=== PATIENT | female | born 1945 | race African-American/Black ===

== ENCOUNTER 2018-01-05 15:28 | Inpatient (IN) | payer MEDICARE, OTHER ==
[~2018-01-05] VITALS: Ht 157.5 cm; Wt 59.9 kg
[2018-01-05] MEDS ORDERED: Sodium Chloride 500ML 500 ML IV ONE (16:00)
[2018-01-05 16:19] LABS: BASOPHILS % (AUTO) 1.2 % (0.0-2.0); EOSINOPHILS % (AUTO) 0.9 % (0.0-3.0); HEMATOCRIT 36.6 % (37.0-47.0); HEMOGLOBIN 11.5 G/DL (12.0-16.0); LYMPHOCYTES % (AUTO) 25.3 % (20.0-45.0); MEAN CORPUSCULAR VOLUME 83 FL (80-99); MONOCYTES % (AUTO) 12.6 % (1.0-10.0); PLATELET COUNT 316 K/UL (150-450); RED BLOOD COUNT 4.39 M/UL (4.20-5.40); RED CELL DISTRIBUTION WIDTH 14.6 % (11.6-14.8); WHITE BLOOD COUNT 9.5 K/UL (4.8-10.8)
[2018-01-05 16:37] VITALS: BP 104/72
[2018-01-05 16:51] LABS: ANION GAP 7 mmol/L (5-15); BLOOD UREA NITROGEN 27 mg/dL (7-18); CALCIUM 9.5 MG/DL (8.5-10.1); CARBON DIOXIDE 28 MMOL/L (21-32); CHLORIDE 99 MMOL/L (98-107); CREATININE 1.4 MG/DL (0.55-1.30); POTASSIUM 4.7 MMOL/L (3.5-5.1); SODIUM 134 MMOL/L (136-145)
[2018-01-05 17:05] LABS: ALANINE AMINOTRANSFERASE 107 U/L (12-78); ALBUMIN 2.7 G/DL (3.4-5.0); ALBUMIN/GLOBULIN RATIO 0.4 (1.0-2.7); ALKALINE PHOSPHATASE 238 U/L (46-116); ASPARTATE AMINO TRANSFERASE 125 U/L (15-37); BILIRUBIN,TOTAL 0.5 MG/DL (0.2-1.0); CKMB 0.6 NG/ML (0.0-3.6); CREATINE KINASE 49 U/L (26-308); PHOSPHORUS 3.8 MG/DL (2.5-4.9)
--- NOTE | 2018-01-05 17:33 | Diagnostic Imaging Report ---
Indication: Shortness of breath Technique: One view of the chest Comparison: none Findings: The lungs and pleural spaces are clear. There is a left chest bifocal pacemaker. The heart size is normal Impression: No acute process
[2018-01-05 17:59] LABS: APPEARANCE,URINE SLIGHTLY CLOUDY; BILIRUBIN, URINE NEGATIVE (NEGATIVE); GLUCOSE, URINE (UA) 2+ (NEGATIVE); KETONES,URINE NEGATIVE (NEGATIVE); LEUKOCYTE ESTERASE ,URINE NEGATIVE (NEGATIVE); NITRITE,URINE NEGATIVE (NEGATIVE); PH,URINE 6 (4.5-8.0); PROTEIN,URINE NEGATIVE (NEGATIVE); UROBILINOGEN,URINE NORMAL MG/DL (0.0-1.0)
[2018-01-05 18:02] LABS: COLOR,URINE YELLOW
[2018-01-05 19:39] VITALS: BP 111/69
[2018-01-05] MEDS ORDERED: POTASSIUM CHLO20 ME1 ORAL (19:42)
[2018-01-05] MEDS ORDERED: COLACE100 MG ORAL (19:42)
[2018-01-05] MEDS ORDERED: LIPITOR40 MG ORAL (19:42)
[2018-01-05] MEDS ORDERED: ALBUTEROL2.5 MG/3 M INH (19:42)
[2018-01-05] MEDS ORDERED: COZAAR50 MG ORAL (19:42)
[2018-01-05] MEDS ORDERED: NEURONTIN300 MG ORAL (19:42)
[2018-01-05] MEDS ORDERED: SEROQUEL25 MG ORAL (19:42)
[2018-01-05] MEDS ORDERED: LEVEMIR FL100 UNIT/1 SUBQ (20:00)
[2018-01-05] MEDS ORDERED: ELIQUIS2.5 MG PO (20:00)
[2018-01-05] MEDS ORDERED: TIVICAY50 MG ORAL (20:00)
[2018-01-05] MEDS ORDERED: JANUVIA100 MG ORAL (20:00)
[2018-01-05] MEDS ORDERED: MAGNESIUM400 M1 PO (20:00)
[2018-01-05] MEDS ORDERED: IPRATROPIU0.2 MG/1 M HHN (20:00)
[2018-01-05] MEDS ORDERED: DESCOVY 200-251 EACH PO (20:00)
--- NOTE | 2018-01-05 20:22 | Cardiology Progress Note ---
Assessment/Plan Assessment/Plan The patient is seen and examined, full consult note is dictated. Objective Last 24 Hour Vital Signs Date Time Temp Pulse Resp B/P (MAP) Pulse Ox O2 Delivery O2 Flow Rate FiO2 01/05/18 19:39 66 16 111/69 100 Room Air 01/05/18 16:37 64 17 104/72 100 Room Air 01/05/18 15:17 97.3 73 18 100/59 96 Room Air 97.3 Laboratory Tests Test 01/05/18 15:38 01/05/18 15:56 Urine Color Yellow Urine Appearance Slightly cloudy Urine pH 6 (4.5-8.0) Urine Specific [place] 1.015 (1.005-1.035) Urine Protein Negative (NEGATIVE) Urine Glucose (UA) 2+ (NEGATIVE) H Urine Ketones Negative (NEGATIVE) Urine Occult Blood Negative (NEGATIVE) Urine Nitrite Negative (NEGATIVE) Urine Bilirubin Negative (NEGATIVE) Urine Urobilinogen Normal MG/DL (0.0-1.0) Urine Leukocyte Esterase Negative (NEGATIVE) Urine RBC 0-2 /HPF (0 - 2) Urine WBC 0-2 /HPF (0 - 2) Urine Squamous Epithelial Cells Occasional /LPF Urine Bacteria Many /HPF (NONE) H White Blood Count 9.5 K/UL (4.8-10.8) Red Blood Count 4.39 M/UL (4.20-5.40) Hemoglobin 11.5 G/DL (12.0-16.0) L Hematocrit 36.6 % (37.0-47.0) L Mean Corpuscular Volume 83 FL (80-99) Mean Corpuscular Hemoglobin 26.1 PG (27.0-31.0) L Mean Corpuscular Hemoglobin Concent 31.4 G/DL (32.0-36.0) L Red Cell Distribution Width 14.6 % (11.6-14.8) Platelet Count 316 K/UL (150-450) Mean Platelet Volume 8.5 FL (6.5-10.1) Neutrophils (%) (Auto) 60.0 % (45.0-75.0) Lymphocytes (%) (Auto) 25.3 % (20.0-45.0) Monocytes (%) (Auto) 12.6 % (1.0-10.0) H Eosinophils (%) (Auto) 0.9 % (0.0-3.0) Basophils (%) (Auto) 1.2 % (0.0-2.0) Sodium Level 134 MMOL/L (136-145) L Potassium Level 4.7 MMOL/L (3.5-5.1) Chloride Level 99 MMOL/L (98-107) Carbon Dioxide Level 28 MMOL/L (21-32) Anion Gap 7 mmol/L (5-15) Blood Urea Nitrogen 27 mg/dL (7-18) H Creatinine 1.4 MG/DL (0.55-1.30) H Estimat Glomerular Filtration Rate 37.2 mL/min (>60) Glucose Level 261 MG/DL (74-106) H Lactic Acid Level 1.40 mmol/L (0.66-2.22) Calcium Level 9.5 MG/DL (8.5-10.1) Phosphorus Level 3.8 MG/DL (2.5-4.9) Magnesium Level 2.0 MG/DL (1.8-2.4) Total Bilirubin 0.5 MG/DL (0.2-1.0) Aspartate Amino Transf (AST/SGOT) 125 U/L (15-37) H Alanine Aminotransferase (ALT/SGPT) 107 U/L (12-78) H Alkaline Phosphatase 238 U/L (46-116) H Total Creatine Kinase 49 U/L (26-308) Creatine Kinase MB 0.6 NG/ML (0.0-3.6) Creatine Kinase MB Relative Index 1.2 Troponin I 0.005 ng/mL (0.000-0.056) Total Protein 9.0 G/DL (6.4-8.2) H Albumin 2.7 G/DL (3.4-5.0) L Globulin 6.3 g/dL Albumin/Globulin Ratio 0.4 (1.0-2.7) L SOFIE RDZ Jan 05, 2018 20:22
[2018-01-05 20:30] VITALS: BP 147/76
--- NOTE | 2018-01-05 21:56 | Emergency Room Report ---
History of Present Illness General Chief Complaint: Generalized Weakness Source: Medical Record, EMS Present Illness HPI Patient is a 72-year-old female brought in by after general increased generalized weakness and low blood pressure. The patient had prior history of dementia. The patient daughter states the patient was recently hospitalized and was noted to have increased weakness.Patient had decreased oral intake. She was noted to have low blood pressure when seen by her director of quantitative research earlier in the day Allergies: Coded Allergies: No Known Allergies (Unverified , 01/05/18) Patient History Past Medical History: see triage record Last Menstrual Period: na Reviewed Nursing Documentation: PMH: Agreed; PSxH: Agreed Nursing Documentation-PMH Past Medical History: No History, Except For Hx Hypertension: Yes Hx Diabetes: Yes Hx Gastrointestinal Problems: Yes - gastritis History Of Psychiatric Problem: Yes - depression, Review of Systems All Other Systems: negative except mentioned in HPI Physical Exam Vital Signs Date Time Temp Pulse Resp B/P (MAP) Pulse Ox O2 Delivery O2 Flow Rate FiO2 01/05/18 15:17 97.3 73 18 100/59 96 Room Air 97.3 Sp02 EP Interpretation: reviewed, normal General Appearance: normal inspection, alert, Chronically Ill Head: atraumatic ENT: normal ENT inspection, hearing grossly normal, normal voice Neck: normal inspection, supple, no bony tend, limited range of motion Respiratory: normal inspection, lungs clear, normal breath sounds, no respiratory distress, no retraction, no wheezing Cardiovascular #1: regular rate, rhythm, no edema Gastrointestinal: normal inspection, normal bowel sounds, non tender, soft, no guarding, no hernia Genitourinary: no CVA tenderness Musculoskeletal: normal inspection, back normal, normal range of motion Neurologic: normal inspection, alert, responsive, speech normal Psychiatric: normal inspection, judgement/insight normal, mood/affect normal Skin: normal inspection, normal color, no rash Medical Decision Making Diagnostic Impression: Primary Impression: Generalized weakness Additional Impression: Hypotension ER Course Patient presented for generalized weakness. Differential diagnosis included was not limited to anemia, urinary tract infection, electrolyte abnormality, hypothyroidism, myocardial infarction, myasthenia gravis, dehydration, among others. Because of complexity of patient's case laboratory testing and imaging studies were ordered.The patient was started on IV fluids. She was noted to have some initially borderline low blood pressure while supine. Labs Test 01/05/18 15:38 3/27/18 15:56 Urine Color Yellow Urine Appearance Slightly cloudy Urine pH 6 (4.5-8.0) Urine Specific [place] 1.015 (1.005-1.035) Urine Protein Negative (NEGATIVE) Urine Glucose (UA) 2+ (NEGATIVE) Urine Ketones Negative (NEGATIVE) Urine Occult Blood Negative (NEGATIVE) Urine Nitrite Negative (NEGATIVE) Urine Bilirubin Negative (NEGATIVE) Urine Urobilinogen Normal MG/DL (0.0-1.0) Urine Leukocyte Esterase Negative (NEGATIVE) Urine RBC 0-2 /HPF (0 - 2) Urine WBC 0-2 /HPF (0 - 2) Urine Squamous Epithelial Cells Occasional /LPF Urine Bacteria Many /HPF (NONE) White Blood Count 9.5 K/UL (4.8-10.8) Red Blood Count 4.39 M/UL (4.20-5.40) Hemoglobin 11.5 G/DL (12.0-16.0) Hematocrit 36.6 % (37.0-47.0) Mean Corpuscular Volume 83 FL (80-99) Mean Corpuscular Hemoglobin 26.1 PG (27.0-31.0) Mean Corpuscular Hemoglobin Concent 31.4 G/DL (32.0-36.0) Red Cell Distribution Width 14.6 % (11.6-14.8) Platelet Count 316 K/UL (150-450) Mean Platelet Volume 8.5 FL (6.5-10.1) Neutrophils (%) (Auto) 60.0 % (45.0-75.0) Lymphocytes (%) (Auto) 25.3 % (20.0-45.0) Monocytes (%) (Auto) 12.6 % (1.0-10.0) Eosinophils (%) (Auto) 0.9 % (0.0-3.0) Basophils (%) (Auto) 1.2 % (0.0-2.0) Sodium Level 134 MMOL/L (136-145) Potassium Level 4.7 MMOL/L (3.5-5.1) Chloride Level 99 MMOL/L (98-107) Carbon Dioxide Level 28 MMOL/L (21-32) Anion Gap 7 mmol/L (5-15) Blood Urea Nitrogen 27 mg/dL (7-18) Creatinine 1.4 MG/DL (0.55-1.30) Estimat Glomerular Filtration Rate 37.2 mL/min (>60) Glucose Level 261 MG/DL (74-106) Lactic Acid Level 1.40 mmol/L (0.66-2.22) Calcium Level 9.5 MG/DL (8.5-10.1) Phosphorus Level 3.8 MG/DL (2.5-4.9) Magnesium Level 2.0 MG/DL (1.8-2.4) Total Bilirubin 0.5 MG/DL (0.2-1.0) Aspartate Amino Transf (AST/SGOT) 125 U/L (15-37) Alanine Aminotransferase (ALT/SGPT) 107 U/L (12-78) Alkaline Phosphatase 238 U/L (46-116) Total Creatine Kinase 49 U/L (26-308) Creatine Kinase MB 0.6 NG/ML (0.0-3.6) Creatine Kinase MB Relative Index 1.2 Troponin I 0.005 ng/mL (0.000-0.056) Total Protein 9.0 G/DL (6.4-8.2) Albumin 2.7 G/DL (3.4-5.0) Globulin 6.3 g/dL Albumin/Globulin Ratio 0.4 (1.0-2.7) Last Vital Signs Date Time Temp Pulse Resp B/P (MAP) Pulse Ox O2 Delivery O2 Flow Rate FiO2 01/05/18 19:39 66 16 111/69 100 Room Air 01/05/18 15:17 97.3 97.3 Status: unchanged Disposition: ADMITTED INPATIENT Condition: Serious Referrals: NON PHYSICIAN (PCP) Leobardo Castro Jan 05, 2018 21:56
[2018-01-05] MEDS ORDERED: Norco 5mg/325mg tab ORAL PRN (23:30)
[2018-01-05] MEDS ORDERED: Ipratropium 0.02% Inh Soln 2.5ml UD HHN PRN (23:30)
[2018-01-06] VITALS: BP 101/58
[2018-01-06 04:00] VITALS: BP 120/73
[2018-01-06] MEDS: NovoLOG Insulin Flexpen SUBQ SCH ×4 (06:17→21:42)
[2018-01-06] MEDS ORDERED: NovoLOG Insulin Flexpen SUBQ SCH (06:30)
[2018-01-06 08:00] VITALS: BP 133/73
[2018-01-06 08:33] LABS: BASOPHILS % (AUTO) 0.9 % (0.0-2.0); EOSINOPHILS % (AUTO) 1.2 % (0.0-3.0); HEMATOCRIT 33.6 % (37.0-47.0); HEMOGLOBIN 10.9 G/DL (12.0-16.0); MEAN CORPUSCULAR VOLUME 83 FL (80-99); MONOCYTES % (AUTO) 7.9 % (1.0-10.0); PLATELET COUNT 301 K/UL (150-450); RED BLOOD COUNT 4.07 M/UL (4.20-5.40); RED CELL DISTRIBUTION WIDTH 14.3 % (11.6-14.8); WHITE BLOOD COUNT 8.8 K/UL (4.8-10.8)
--- NOTE | 2018-01-06 08:41 | General Progress Note ---
Assessment/Plan Status: stable Assessment/Plan 1- Wasting syndrom- Deconditionng 2- HIV 3- Afib 4- DM 5- HTN 6- Malnuiritinoment 7-CKD Plan: ID consulted Check Abd-US Subjective ROS Limited/Unobtainable: Yes - dementia, poor historian . comfortable Allergies: Coded Allergies: No Known Allergies (Unverified , 01/05/18) Objective Last 24 Hour Vital Signs Date Time Temp Pulse Resp B/P (MAP) Pulse Ox O2 Delivery O2 Flow Rate FiO2 01/06/18 08:00 97.2 80 18 133/73 Room Air 97.2 01/06/18 04:00 61 01/06/18 04:00 98.0 78 18 120/73 99 Room Air 98.0 01/06/18 00:00 61 01/06/18 00:00 97.7 66 18 101/58 99 Room Air 97.7 01/05/18 20:30 99.5 63 19 147/76 99 Room Air 99.5 01/05/18 20:30 97.3 66 16 111/69 100 Room Air 97.3 01/05/18 19:39 66 16 111/69 100 Room Air 01/05/18 16:37 64 17 104/72 100 Room Air 01/05/18 15:17 97.3 73 18 100/59 96 Room Air 97.3 Intake and Output 01/05/18 01/06/18 19:00 07:00 Intake Total 0 ml Output Total 700 ml Balance 0 ml -700 ml Intake Oral 0 ml Output Urine Total 700 ml Laboratory Tests 01/05/18 15:38: Urine Color Yellow, Urine Appearance Slightly cloudy, Urine pH 6, Urine Specific [place] 1.015, Urine Protein Negative, Urine Glucose (UA) 2+H, Urine Ketones Negative, Urine Occult Blood Negative, Urine Nitrite Negative, Urine Bilirubin Negative, Urine Urobilinogen Normal, Urine Leukocyte Esterase Negative , Urine RBC 0-2, Urine WBC 0-2, Urine Squamous Epithelial Cells Occasional, Urine Bacteria ManyH 01/05/18 15:56: White Blood Count 9.5, Red Blood Count 4.39, Hemoglobin 11.5L, Hematocrit 36.6L , Mean Corpuscular Volume 83, Mean Corpuscular Hemoglobin 26.1L, Mean Corpuscular Hemoglobin Concent 31.4L, Red Cell Distribution Width 14.6, Platelet Count 316, Mean Platelet Volume 8.5, Neutrophils (%) (Auto) 60.0, Lymphocytes (%) (Auto) 25.3, Monocytes (%) (Auto) 12.6H, Eosinophils (%) (Auto) 0.9, Basophils (%) (Auto) 1.2, Sodium Level 134L, Potassium Level 4.7, Chloride Level 99, Carbon Dioxide Level 28, Anion Gap 7, Blood Urea Nitrogen 27H, Creatinine 1.4H, Estimat Glomerular Filtration Rate 37.2, Glucose Level 261H, Lactic Acid Level 1.40, Calcium Level 9.5, Phosphorus Level 3.8, Magnesium Level 2.0, Total Bilirubin 0.5, Aspartate Amino Transf (AST/SGOT) 125H, Alanine Aminotransferase (ALT/SGPT) 107H, Alkaline Phosphatase 238H, Total Creatine Kinase 49, Creatine Kinase MB 0.6, Creatine Kinase MB Relative Index 1.2, Troponin I 0.005, Total Protein 9.0H, Albumin 2.7L, Globulin 6.3, Albumin/ Globulin Ratio 0.4L 01/06/18 06:27: White Blood Count [Pending], Red Blood Count [Pending], Hemoglobin [Pending], Hematocrit [Pending], Mean Corpuscular Volume [Pending], Mean Corpuscular Hemoglobin [Pending], Mean Corpuscular Hemoglobin Concent [Pending], Red Cell Distribution Width [Pending], Platelet Count [Pending], Mean Platelet Volume [ Pending], Neutrophils (%) (Auto) [Pending], Lymphocytes (%) (Auto) [Pending], Monocytes (%) (Auto) [Pending], Eosinophils (%) (Auto) [Pending], Basophils (%) (Auto) [Pending], Sodium Level [Pending], Potassium Level [Pending], Chloride Level [Pending], Carbon Dioxide Level [Pending], Blood Urea Nitrogen [Pending], Creatinine [Pending], Estimat Glomerular Filtration Rate [Pending], Glucose Level [Pending], Calcium Level [Pending], Total Bilirubin [Pending], Aspartate Amino Transf (AST/SGOT) [Pending], Alanine Aminotransferase (ALT/SGPT) [Pending] , Alkaline Phosphatase [Pending], Total Protein [Pending], Albumin [Pending], Globulin [Pending], Hemoglobin A1c [Pending], Triglycerides Level [Pending], Cholesterol Level [Pending], LDL Cholesterol [Pending], HDL Cholesterol [Pending ], Cholesterol/HDL Ratio [Pending], Thyroid Stimulating Hormone (TSH) [Pending] Height (Feet): 5 Height (Inches): 2.00 Weight (Pounds): 132 General Appearance: no apparent distress EENT: PERRL/EOMI Neck: supple Cardiovascular: other - Left chest wall pace maker in place Respiratory/Chest: lungs clear Abdomen: soft Extremities: non-tender, other - deconditioning and loss of muslce, Neurologic: micro paleontologist II-XII grossly normal, disoriented - dementia Tarik Alves MD Jan 06, 2018 08:41
--- NOTE | 2018-01-06 08:43 | History & Physical ---
History and Physical History & Physicial seen and examined. Dic completed Tarik Alves MD Jan 06, 2018 08:43
[2018-01-06 08:45] LABS: ALANINE AMINOTRANSFERASE 84 U/L (12-78); ALBUMIN 2.4 G/DL (3.4-5.0); ALBUMIN/GLOBULIN RATIO 0.4 (1.0-2.7); ALKALINE PHOSPHATASE 209 U/L (46-116); ANION GAP 6 mmol/L (5-15); ASPARTATE AMINO TRANSFERASE 101 U/L (15-37); BILIRUBIN,TOTAL 0.5 MG/DL (0.2-1.0); BLOOD UREA NITROGEN 22 mg/dL (7-18); CALCIUM 9.1 MG/DL (8.5-10.1); CARBON DIOXIDE 27 MMOL/L (21-32); CHLORIDE 105 MMOL/L (98-107); CHOLESTEROL 145 MG/DL (< 200); CREATININE 1.1 MG/DL (0.55-1.30); HDL CHOLESTEROL 38 MG/DL (40-60); POTASSIUM 4.2 MMOL/L (3.5-5.1); SODIUM 138 MMOL/L (136-145); TRIGLYCERIDES 94 MG/DL (30-150)
[2018-01-06] MEDS: Eliquis 2.5mg tablet ORAL SCH ×2 (09:39→18:33)
[2018-01-06] MEDS: Losartan 50mg tab ORAL SCH (09:42)
[2018-01-06] MEDS: Dolutegravir Sodium 50mg tab ORAL SCH (09:42)
[2018-01-06] MEDS: Docusate 100mg cap ORAL SCH ×2 (09:42→18:33)
[2018-01-06 12:00] VITALS: BP 108/62
--- NOTE | 2018-01-06 13:07 | Consultation ---
History of Present Illness General Date patient seen: Jan 06, 2018 Time patient seen: 12:53 Chief Complaint: Generalized Weakness Present Illness HPI 72 y/o F with hx of HTN, Dementia, gastritis, MDD, Dm2, well controlled HIV (Dx 07/2001, CD4>500 at time of dx) on Descovy and Truvada, Hep C w/ 6 month tx failure presents to ED on 01/05 with increased generalized weakness, decreased appetite and hypotension. Of note, patient recently hospitalized per daughter. Patient afebrile, no leukocytosis. u/a and CXR neg but ucx growing GNRs. off abx currently. Denies cough, SOB, abd pain. n/v/d, urinary symptoms, JOYA, memory problems. Allergies: Coded Allergies: No Known Allergies (Unverified , 01/05/18) Medication History Scheduled Atorvastatin Calcium* (Lipitor*), 40 MG ORAL BEDTIME, (Reported) Docusate Sodium* (Colace*), 100 MG ORAL TWICE A DAY, (Reported) Dolutegravir Sodium (Tivicay), 50 MG ORAL DAILY, (Reported) Gabapentin (Neurontin), 300 MG ORAL BID, (Reported) Losartan Potassium* (Cozaar*), 50 MG ORAL DAILY, (Reported) Potassium Chloride* (K-Dur*), 40 MEQ ORAL DAILY, (Reported) Quetiapine Fumarate* (Seroquel*), 25 MG ORAL TWICE A DAY, (Reported) Sitagliptin (Januvia), 100 MG ORAL DAILY, (Reported) Scheduled PRN Albuterol Sulfate* (Albuterol Sulfate Hhn*), 3 ML INH Q4H PRN for Shortness of Breath, (Reported) Ipratropium [place] 0.5MG/2.5ML (Ipratropium [place] 0.5MG/2.5ML), 0.5 MG HHN Q6H PRN for Shortness of Breath, (Reported) Miscellaneous Medications Apixaban (Eliquis), 2.5 MG PO, (Reported) Emtricitabine/Tenofov Alafenam (Descovy 200-25 mg Tablet), 1 EACH PO, (Reported) Insulin Detemir (Levemir Flexpen), 0 SUBQ, (Reported) Magnesium Oxide (Magnesium), 400 MG PO, (Reported) Patient History Healthcare decision maker Resuscitation status Full Code Advanced Directive on File No Patient History Narrative Pmhx: as above Shx: reviewed Fhx: non contributory Review of Systems All Other Systems: negative except mentioned in HPI Physical Exam Physical Exam Narrative General Appearance: normal inspection, alert, Chronically Ill Head: atraumatic ENT: normal ENT inspection, hearing grossly normal, normal voice Neck: normal inspection, supple, no bony tend, limited range of motion Respiratory: normal inspection, lungs clear, normal breath sounds, no respiratory distress, no retraction, no wheezing Cardiovascular : regular rate, rhythm, no edema Gastrointestinal: normal inspection, normal bowel sounds, non tender, soft, no guarding, no hernia Genitourinary: no CVA tenderness Musculoskeletal: normal inspection, back normal, normal range of motion Neurologic: normal inspection, alert, responsive, speech normal Psychiatric: normal inspection, judgement/insight normal, mood/affect normal Skin: normal inspection, normal color, no rash Last 24 Hour Vital Signs Date Time Temp Pulse Resp B/P (MAP) Pulse Ox O2 Delivery O2 Flow Rate FiO2 01/06/18 09:42 133/73 01/06/18 08:00 97.2 80 18 133/73 Room Air 97.2 01/06/18 07:30 66 16 Room Air 21 01/06/18 04:00 61 01/06/18 04:00 98.0 78 18 120/73 99 Room Air 98.0 01/06/18 00:00 61 01/06/18 00:00 97.7 66 18 101/58 99 Room Air 97.7 01/05/18 20:30 99.5 63 19 147/76 99 Room Air 99.5 01/05/18 20:30 97.3 66 16 111/69 100 Room Air 97.3 01/05/18 19:39 66 16 111/69 100 Room Air 01/05/18 16:37 64 17 104/72 100 Room Air 01/05/18 15:17 97.3 73 18 100/59 96 Room Air 97.3 Intake and Output 01/05/18 01/06/18 19:00 07:00 Intake Total 0 ml Output Total 700 ml Balance 0 ml -700 ml Intake Oral 0 ml Output Urine Total 700 ml Laboratory Tests Test 01/05/18 15:38 01/05/18 15:56 01/06/18 06:27 Urine Color Yellow Urine Appearance Slightly cloudy Urine pH 6 (4.5-8.0) Urine Specific [place] 1.015 (1.005-1.035) Urine Protein Negative (NEGATIVE) Urine Glucose (UA) 2+ (NEGATIVE) H Urine Ketones Negative (NEGATIVE) Urine Occult Blood Negative (NEGATIVE) Urine Nitrite Negative (NEGATIVE) Urine Bilirubin Negative (NEGATIVE) Urine Urobilinogen Normal MG/DL (0.0-1.0) Urine Leukocyte Esterase Negative (NEGATIVE) Urine RBC 0-2 /HPF (0 - 2) Urine WBC 0-2 /HPF (0 - 2) Urine Squamous Epithelial Cells Occasional /LPF Urine Bacteria Many /HPF (NONE) H White Blood Count 9.5 K/UL (4.8-10.8) 8.8 K/UL (4.8-10.8) Red Blood Count 4.39 M/UL (4.20-5.40) 4.07 M/UL (4.20-5.40) L Hemoglobin 11.5 G/DL (12.0-16.0) L 10.9 G/DL (12.0-16.0) L Hematocrit 36.6 % (37.0-47.0) L 33.6 % (37.0-47.0) L Mean Corpuscular Volume 83 FL (80-99) 83 FL (80-99) Mean Corpuscular Hemoglobin 26.1 PG (27.0-31.0) L 26.8 PG (27.0-31.0) L Mean Corpuscular Hemoglobin Concent 31.4 G/DL (32.0-36.0) L 32.4 G/DL (32.0-36.0) Red Cell Distribution Width 14.6 % (11.6-14.8) 14.3 % (11.6-14.8) Platelet Count 316 K/UL (150-450) 301 K/UL (150-450) Mean Platelet Volume 8.5 FL (6.5-10.1) 7.7 FL (6.5-10.1) Neutrophils (%) (Auto) 60.0 % (45.0-75.0) 57.0 % (45.0-75.0) Lymphocytes (%) (Auto) 25.3 % (20.0-45.0) 33.0 % (20.0-45.0) Monocytes (%) (Auto) 12.6 % (1.0-10.0) H 7.9 % (1.0-10.0) Eosinophils (%) (Auto) 0.9 % (0.0-3.0) 1.2 % (0.0-3.0) Basophils (%) (Auto) 1.2 % (0.0-2.0) 0.9 % (0.0-2.0) Sodium Level 134 MMOL/L (136-145) L 138 MMOL/L (136-145) Potassium Level 4.7 MMOL/L (3.5-5.1) 4.2 MMOL/L (3.5-5.1) Chloride Level 99 MMOL/L (98-107) 105 MMOL/L (98-107) Carbon Dioxide Level 28 MMOL/L (21-32) 27 MMOL/L (21-32) Anion Gap 7 mmol/L (5-15) 6 mmol/L (5-15) Blood Urea Nitrogen 27 mg/dL (7-18) H 22 mg/dL (7-18) H Creatinine 1.4 MG/DL (0.55-1.30) H 1.1 MG/DL (0.55-1.30) Estimat Glomerular Filtration Rate 37.2 mL/min (>60) 59.5 mL/min (>60) Glucose Level 261 MG/DL (74-106) H 150 MG/DL (74-106) #H Lactic Acid Level 1.40 mmol/L (0.66-2.22) Calcium Level 9.5 MG/DL (8.5-10.1) 9.1 MG/DL (8.5-10.1) Phosphorus Level 3.8 MG/DL (2.5-4.9) Magnesium Level 2.0 MG/DL (1.8-2.4) Total Bilirubin 0.5 MG/DL (0.2-1.0) 0.5 MG/DL (0.2-1.0) Aspartate Amino Transf (AST/SGOT) 125 U/L (15-37) H 101 U/L (15-37) H Alanine Aminotransferase (ALT/SGPT) 107 U/L (12-78) H 84 U/L (12-78) H Alkaline Phosphatase 238 U/L (46-116) H 209 U/L (46-116) H Total Creatine Kinase 49 U/L (26-308) Creatine Kinase MB 0.6 NG/ML (0.0-3.6) Creatine Kinase MB Relative Index 1.2 Troponin I 0.005 ng/mL (0.000-0.056) 0.000 ng/mL (0.000-0.056) Total Protein 9.0 G/DL (6.4-8.2) H 8.1 G/DL (6.4-8.2) Albumin 2.7 G/DL (3.4-5.0) L 2.4 G/DL (3.4-5.0) L Globulin 6.3 g/dL 5.7 g/dL Albumin/Globulin Ratio 0.4 (1.0-2.7) L 0.4 (1.0-2.7) L Hemoglobin A1c 8.5 % (4.3-6.0) H Triglycerides Level 94 MG/DL (30-150) Cholesterol Level 145 MG/DL (< 200) LDL Cholesterol 99 mg/dL (<100) HDL Cholesterol 38 MG/DL (40-60) L Cholesterol/HDL Ratio 3.8 (3.3-4.4) Thyroid Stimulating Hormone (TSH) 2.206 uiU/mL (0.358-3.740) Microbiology Date/Time Source Procedure Growth Status 01/05/18 15:38 Urine,Clean Catch Urine Culture - Preliminary Gram Negative Bacillus 1 Resulted Height (Feet): 5 Height (Inches): 2.00 Weight (Pounds): 132 Medications Current Medications Medications (Trade) Dose Ordered Sig/Nader Route PRN Reason Start Time Stop Time Status Last Admin Dose Admin Acetaminophen (Tylenol) 650 mg Q6H PRN ORAL Mild Pain/Temp > 100.5 01/05/18 23:30 02/04/18 23:29 Acetaminophen/ Hydrocodone Bitart ([place] 5/325) 1 tab Q6H PRN ORAL Severe Pain (Pain Scale 7-10) 01/05/18 23:30 01/12/18 23:29 01/06/18 02:18 Albuterol Sulfate (Proventil) 2.5 mg Q4H PRN HHN Shortness of Breath 01/06/18 23:30 01/11/18 23:29 Apixaban (Eliquis) 2.5 mg BID ORAL 01/06/18 09:00 02/05/18 08:59 01/06/18 09:39 Atorvastatin Calcium (Lipitor) 40 mg BEDTIME ORAL 01/06/18 21:00 02/05/18 20:59 Docusate Sodium (Colace) 100 mg TWICE A DAY ORAL 01/06/18 09:00 02/05/18 08:59 01/06/18 09:42 Dolutegravir Sodium (Tivicay) 50 mg DAILY ORAL 01/06/18 09:00 02/05/18 08:59 01/06/18 09:42 Gabapentin (Neurontin) 300 mg BID ORAL 01/06/18 09:00 02/05/18 08:59 01/06/18 09:42 Insulin Aspart (NovoLOG) BEFORE MEALS AND HS SUBQ 01/06/18 06:30 02/05/18 06:29 01/06/18 06:17 Insulin Detemir (Levemir) 20 units BEDTIME SUBQ 01/06/18 21:00 02/05/18 20:59 Ipratropium [place] (Atrovent) 500 mcg Q6H PRN HHN Shortness of Breath 01/05/18 23:30 01/10/18 23:29 Losartan Potassium (Cozaar) 50 mg DAILY ORAL 01/06/18 09:00 02/05/18 08:59 01/06/18 09:42 Ondansetron HCl (Zofran) 4 mg Q6H PRN IVP Nausea & Vomiting 01/05/18 23:30 02/04/18 23:29 Pantoprazole (Protonix) 40 mg ACBREAKFAST ORAL 01/06/18 06:30 02/05/18 06:29 01/06/18 06:16 Potassium Chloride (K-Dur) 20 meq BID ORAL 01/06/18 09:00 02/05/18 08:59 01/06/18 09:39 Quetiapine Fumarate (SEROquel) 25 mg TWICE A DAY ORAL 01/06/18 09:00 02/05/18 08:59 01/06/18 09:39 Sitagliptin Phosphate (Januvia) 100 mg DAILY ORAL 01/06/18 09:00 02/05/18 08:59 01/06/18 09:42 Assessment/Plan Assessment/Plan Abx: None Assessment: Assymptomatic bacteriuria -u/a neg, ucx >100K GNRs Wasting syndrome Transient hypotension Afebrile, no leukocytosis -CXR: no acute disease Elevated LFts -abd us Well controlled HIV (per HIV provider notes, CD4 and VL not mentioned) -dx 2001, CD4 >500 at diagnosis -on Truvada and Descovy Afib DM HTN Malnutrition CKD HTN Dementia gastritis MDD Plan: -Continue to monitor off abx -f/u abd US -Cd4, HIV VL, RPR -f/u cx -Monitor CBC/BMP, temperatures Thank you for this consultation. Will continue to follow along with you. Discussed with Sarah Arreaga M.D. Jan 06, 2018 13:07
--- NOTE | 2018-01-06 15:34 | Cardiology Report ---
APPROVED REPORT EXAM: Two-dimensional and M-mode echocardiogram with Doppler and color Doppler. INDICATION Syncope M-Mode DIMENSIONS IVSd1.3 (0.7-1.1cm)Left Atrium (MM)5.5 (1.6-4.0cm) LVDd4.3 (3.5-5.6cm)Aortic Root3.2 (2.0-3.7cm) PWd1.3 (0.7-1.1cm)Aortic Cusp Exc.1.7 (1.5-2.0cm) IVSs1.9 cm LVDs3.1 (2.5-4.0cm) PWs1.7 cm Mild global left ventricular hypokinesis. Left ventricular ejection fraction estimated to be 40-45 %. Mild left ventricular hypertrophy by 2-D. No evidence of pericardial effusion . Moderate-severe bi-atrial enlargements . Right ventricular chamber size is within normal limits. Focal aortic valve sclerosis with adequate cusp excursion. moderatly Thickened mitral valve leaflets with normal excursion. moderate Mitral annulus and aortic root calcification. Normal pulmonic valve structure. Normal tricuspid valve structure. IVC at size 2.2 with physiologic collapse. Pacemaker wire present in the right side chambers. A color flow and spectral Doppler study was performed and revealed: Moderate aortic regurgitation. Severe mitral regurgitation. Diastolic dysfunction can nnot determind due to arrhythmia . Mild to Moderate tricuspid regurgitation. Tricuspid systolic velocities suggests peak right ventricular systolic pressure of 53 mmHg,consistent with moderate pulmonary hypertension. Trace Pulmonic regurgitation present.
--- NOTE | 2018-01-06 15:53 | Diagnostic Imaging Report ---
Indication: Altered mental status Technique: spiral acquisitions obtained through the brain. Angled axial and coronal 5 x 5 mm slices were reconstructed. No IV contrast utilized. Radiation dose was minimized using automated exposure control Total dose length product 1362.01 mGycm. CTDIvol(s) 70.38 mGy Comparison: none FINDINGS: No acute hemorrhage or edema. No mass effect or midline shift. There is age-related enlargement of the ventricles and extra axial CSF spaces. There is periventricular deep white matter ischemic change. Low-attenuation foci within the khurram probably represent artifacts, but could represent small lacunar infarcts. Apparent small lacunar infarct within the right cerebral peduncle is probably real. Normal mendiola-white differentiation. There is evidence of prior bilateral cataract surgery. Visualized sinuses are unremarkable. Intact calvarium. IMPRESSION: Chronic and age-related changes. Negative for acute intracranial bleed or mass effect The CT scanner at [facility] is accredited by the [employer] and the scans are performed using protocols designed to limit radiation exposure to as low as reasonably achievable to attain images of sufficient resolution adequate for diagnostic evaluation
[2018-01-06 16:00] VITALS: BP 103/58
--- NOTE | 2018-01-06 16:09 | Cardiology Report ---
APPROVED REPORT EKG Measurement Heart [id number] Normal sinus rhythm Minimal voltage criteria for LVH, may be normal variant Borderline ECG
--- NOTE | 2018-01-06 18:30 | History and Physical Report ---
DATE OF ADMISSION: 01/05/2018 SOURCE OF INFORMATION: The patient and EMR. HISTORY OF PRESENT ILLNESS: The patient is a pleasant 72-year-old female. The patient reported that she has general weakness and fell down and has pain in the right shoulder. Per ER attending documentation, per the daughter, the patient recently had increase in the forgetfulness and fatigue. At the time of my evaluation, the patient denies any chest pain, shortness of breath, or abnormal bleeding. The patient denies any episodes of loss of consciousness. Limited evaluation secondary to the source of this poor historian patient. PAST MEDICAL HISTORY: Diabetes, hypertension, GERD, hyperlipidemia, dementia, and HIV. PAST SURGICAL HISTORY: Appendectomy, cholecystectomy. MEDICATIONS: Current hospital medications including but not limited to Eliquis 2.5 mg p.o. b.i.d., Lipitor 40 mg daily, sliding scale of insulin, Levemir, Januvia, Seroquel 25 mg p.o. b.i.d. and potassium chloride. ALLERGIES: NKDA. SOCIAL HISTORY: The patient denies history of illicit drug abuse, smoking, or alcohol abuse. PHYSICAL EXAMINATION: VITAL SIGNS: Blood pressure 100/60, temperature 98.2 degrees, pulse oximetry 98% on room air, and respiratory rate 18. HEAD AND NECK: Atraumatic and normocephalic. CHEST: Clear to auscultation. No wheezing. No crackles. ABDOMEN: Soft. No organomegaly. No tenderness. NEUROLOGY: The patient is awake, alert, oriented x2, decreased mentation, and decreased memory. No gross cranial nerve deficits. MUSCULOSKELETAL: No gross lateralized motor deficit. No edema. LABORATORY AND DIAGNOSTIC DATA: Labs dated January 05 shows WBC 9.5, hemoglobin 11.5, and platelets of 360,000. Sodium 134, potassium 4.7, BUN 27, creatinine 1.4, and glucose of 260. AST 125, ALT 107, albumin 2.7. ASSESSMENT: 1. Wasting syndrome - deconditioning. 2. HIV. 3. Renal failure, age indeterminate. 4. Abnormal LFT. 5. Malnourishment - moderate. 6. Anemia. 7. Dementia. 8. GI and DVT prophylaxis. 9. Diabetes. PLAN OF CARE: We will continue with the fluid hydration. We will obtain abdominal ultrasound. We will call Infectious Disease for the assessment of current HIV status. Tarik Alves M.D. DR: MICHAEL JOB#: [id number] CC:
--- NOTE | 2018-01-06 19:00 | Consultation ---
DATE OF CONSULTATION: 01/05/2018 CARDIOLOGY CONSULTATION CONSULTING PHYSICIAN: Rodriguez Banerjee M.D. REFERRING PHYSICIAN: Tarik Alves M.D. REASON FOR CONSULTATION: Management of hypotension. HISTORY OF PRESENT ILLNESS: The patient is a very unfortunate 72-year-old female, who was brought in after complaining of generalized weakness as well as hypotension. The patient's daughter states that the patient was recently hospitalized and was noted to have increased weakness and also she has lost a great deal of weight due to decreased oral intake. She was seen by her therapeutic mentor on 01/05/2018 and was noted to have hypotension and was advised to come to the hospital. PAST MEDICAL HISTORY: Hypertension, diabetes mellitus, gastritis, depression and failure to thrive. History of paroxysmal atrial fibrillation. PAST SURGICAL HISTORY: Status post dual-chamber pacemaker implantation. MEDICATIONS: Albuterol 3 mL inhaler q.4 h. p.r.n. shortness of breath, apixaban 2.5 mg p.o. twice daily, atorvastatin 20 mg p.o. at bedtime, Colace 100 mg p.o. twice daily, Tivicay 50 mg p.o. daily, Descovy 200-25 mg one tablet p.o. daily, gabapentin 300 mg p.o. twice daily, insulin Levemir, Atrovent 0.5 mg HHN q.6 h. p.r.n. shortness of breath, Cozaar 50 mg p.o. daily, magnesium 400 mg p.o. daily, K-Dur 40 mEq p.o. daily, Seroquel 25 mg p.o. twice daily, and Januvia 100 mg p.o. daily. ALLERGIES: No known drug allergies. SOCIAL HISTORY: Denies any tobacco, alcohol, or illicit drug use. FAMILY HISTORY: No premature coronary artery disease or arrhythmogenic . REVIEW OF SYSTEMS: HEENT: Denies any headache, diplopia, or blurred vision. CONSTITUTIONAL: A great deal of weight loss as well as generalized weakness. No fever, chills, or night sweats. CARDIOVASCULAR: Denies any chest pain, shortness of breath, PND, orthopnea or leg swelling. PULMONARY: Denies any cough, hemoptysis or wheezing. GASTROINTESTINAL: Denies any nausea, vomiting, diarrhea, constipation, abdominal pain, or GI bleed, although she has poor p.o. intake recently. GENITOURINARY: Denies any hematuria, dysuria, or incontinence. NEUROLOGY: Denies any motor dysfunction, sensory deficit, or altered speech. PHYSICAL EXAMINATION: GENERAL: The patient is a very unfortunate 72-year-old female, in no apparent respiratory distress. Alert and oriented x4. VITAL SIGNS: Blood pressure was 100/59, respirations 18, pulse of 73, O2 saturation 96% on room air, and temperature 97.3 degrees Fahrenheit. HEENT: Atraumatic and normocephalic. ENT, pupils are equal, round, and reactive to light and accommodation. Extraocular muscles intact. NECK: JVP is less than 5 cm. No carotid bruit. Carotid upstrokes 2+ bilaterally. CARDIOVASCULAR: Normal S1 and S2. Regular rate and rhythm. No murmurs, gallops, or rubs. PMI is at fourth intercostal space in the midclavicular line. LUNGS: Clear to auscultation bilaterally. ABDOMEN: Soft, nontender, and nondistended. No hepatosplenomegaly. Positive bowel sounds. EXTREMITIES: No evidence of edema, clubbing, or cyanosis. LABORATORY AND DIAGNOSTIC DATA: WBC is 9.5, hemoglobin 11.5, hematocrit 36.6, and platelet count is 316. Sodium was 134, potassium was 4.7, chloride 99, bicarbonate 28, BUN of 27, creatinine was 1.4, glucose was 261, calcium was 9.5, and magnesium was 2.0. AST was 125, ALT was 107 and alkaline phosphatase was 238. Troponin I was 0.005. Chest x-ray showed presence of left chest dual chamber pacemaker, otherwise, cardiomegaly. A 12-lead electrocardiogram done in the emergency department revealed sinus rhythm at a rate of 63 with a deep T-wave inversion in V2, which may suggest an ischemia in the anterior wall. There is also LVH. QT interval is borderline as well. ASSESSMENT AND PLAN: The patient is a very unfortunate, 72-year-old female, who is seen in Cardiology consultation at the request of Dr. Alves. 1. Hypotension. This could be due to intravascular volume depletion, as the patient has poor p.o. intake. Her blood pressure medication at home including losartan may need to be adjusted. At this time, we will press a hold on this medication. 2. History of paroxysmal atrial fibrillation, currently in sinus rhythm, on apixaban. 3. Possible sick sinus syndrome, status post dual-chamber pacemaker implantation. We will make an attempt to interrogate the pacemaker. 4. Hypergammaglobulinemia. Workup will be done by Dr. Alves. 5. T-wave inversion in the leads V2 is highly suggestive of ischemia of the LAD. The first troponin I level was negative. I would like to obtain another troponin I level to rule out myocardial infarction. I ordered 2D echocardiography to assess the wall motion. The patient may require a stress test to rule out ischemia. This will depend on the result of 2D echocardiography. I would like to thank Dr. Alves, for the courtesy of this consultation. Rodriguez Banerjee M.D. DR: EDWINA JOB#: [id number] CC:
[2018-01-06 20:00] VITALS: BP 139/71
[2018-01-06] MEDS: Atorvastatin 20mg tab ORAL SCH (21:40)
[2018-01-06] MEDS: Levemir Flexpen SUBQ SCH (21:41)
--- NOTE | 2018-01-06 22:44 | Consultation ---
History of Present Illness General Date patient seen: Jan 05, 2018 Chief Complaint: Generalized Weakness Present Illness HPI 72-year-old female, with hx of dementia and depression who was brought in after complaining of generalized weakness as well as hypotension. the pt pw depressed mood, anhedonia, worthlessness and hopeless. In addition, she is suffering from weight loss due to decrease appetite. Allergies: Coded Allergies: No Known Allergies (Unverified , 01/05/18) Medication History Scheduled Atorvastatin Calcium* (Lipitor*), 40 MG ORAL BEDTIME, (Reported) Docusate Sodium* (Colace*), 100 MG ORAL TWICE A DAY, (Reported) Dolutegravir Sodium (Tivicay), 50 MG ORAL DAILY, (Reported) Gabapentin (Neurontin), 300 MG ORAL BID, (Reported) Losartan Potassium* (Cozaar*), 50 MG ORAL DAILY, (Reported) Potassium Chloride* (K-Dur*), 40 MEQ ORAL DAILY, (Reported) Quetiapine Fumarate* (Seroquel*), 25 MG ORAL TWICE A DAY, (Reported) Sitagliptin (Januvia), 100 MG ORAL DAILY, (Reported) Scheduled PRN Albuterol Sulfate* (Albuterol Sulfate Hhn*), 3 ML INH Q4H PRN for Shortness of Breath, (Reported) Ipratropium [place] 0.5MG/2.5ML (Ipratropium [place] 0.5MG/2.5ML), 0.5 MG HHN Q6H PRN for Shortness of Breath, (Reported) Miscellaneous Medications Apixaban (Eliquis), 2.5 MG PO, (Reported) Emtricitabine/Tenofov Alafenam (Descovy 200-25 mg Tablet), 1 EACH PO, (Reported) Insulin Detemir (Levemir Flexpen), 0 SUBQ, (Reported) Magnesium Oxide (Magnesium), 400 MG PO, (Reported) Patient History Limited by: medical condition History Provided By: Patient, Medical Record, PMD Healthcare decision maker Resuscitation status Full Code Advanced Directive on File No Past Medical/Surgical History Past Medical/Surgical History: (1) Generalized weakness (2) Hypotension Review of Systems Psychiatric: Reports: prior hx, anxiety, depressed feelings, emotional problems Physical Exam General Appearance: WD/WN, no apparent distress, alert Neurologic: alert, oriented x 3, responsive, depressed affect Last 24 Hour Vital Signs Date Time Temp Pulse Resp B/P (MAP) Pulse Ox O2 Delivery O2 Flow Rate FiO2 01/06/18 21:09 72 16 Room Air 21 01/06/18 20:00 98.1 66 20 139/71 99 Room Air 98.1 01/06/18 16:00 63 01/06/18 16:00 97.3 63 18 103/58 98 Room Air 97.3 01/06/18 12:00 97.5 68 18 108/62 99 Room Air 97.5 01/06/18 09:42 133/73 01/06/18 08:00 97.2 80 18 133/73 Room Air 97.2 01/06/18 07:30 66 16 Room Air 21 01/06/18 04:00 61 01/06/18 04:00 98.0 78 18 120/73 99 Room Air 98.0 01/06/18 00:00 61 01/06/18 00:00 97.7 66 18 101/58 99 Room Air 97.7 Intake and Output 01/05/18 01/06/18 19:00 07:00 Intake Total 0 ml Output Total 700 ml Balance 0 ml -700 ml Intake Oral 0 ml Output Urine Total 700 ml Laboratory Tests Test 01/06/18 06:27 White Blood Count 8.8 K/UL (4.8-10.8) Red Blood Count 4.07 M/UL (4.20-5.40) L Hemoglobin 10.9 G/DL (12.0-16.0) L Hematocrit 33.6 % (37.0-47.0) L Mean Corpuscular Volume 83 FL (80-99) Mean Corpuscular Hemoglobin 26.8 PG (27.0-31.0) L Mean Corpuscular Hemoglobin Concent 32.4 G/DL (32.0-36.0) Red Cell Distribution Width 14.3 % (11.6-14.8) Platelet Count 301 K/UL (150-450) Mean Platelet Volume 7.7 FL (6.5-10.1) Neutrophils (%) (Auto) 57.0 % (45.0-75.0) Lymphocytes (%) (Auto) 33.0 % (20.0-45.0) Monocytes (%) (Auto) 7.9 % (1.0-10.0) Eosinophils (%) (Auto) 1.2 % (0.0-3.0) Basophils (%) (Auto) 0.9 % (0.0-2.0) Sodium Level 138 MMOL/L (136-145) Potassium Level 4.2 MMOL/L (3.5-5.1) Chloride Level 105 MMOL/L (98-107) Carbon Dioxide Level 27 MMOL/L (21-32) Anion Gap 6 mmol/L (5-15) Blood Urea Nitrogen 22 mg/dL (7-18) H Creatinine 1.1 MG/DL (0.55-1.30) Estimat Glomerular Filtration Rate 59.5 mL/min (>60) Glucose Level 150 MG/DL (74-106) #H Hemoglobin A1c 8.5 % (4.3-6.0) H Calcium Level 9.1 MG/DL (8.5-10.1) Total Bilirubin 0.5 MG/DL (0.2-1.0) Aspartate Amino Transf (AST/SGOT) 101 U/L (15-37) H Alanine Aminotransferase (ALT/SGPT) 84 U/L (12-78) H Alkaline Phosphatase 209 U/L (46-116) H Troponin I 0.000 ng/mL (0.000-0.056) Total Protein 8.1 G/DL (6.4-8.2) Albumin 2.4 G/DL (3.4-5.0) L Globulin 5.7 g/dL Albumin/Globulin Ratio 0.4 (1.0-2.7) L Triglycerides Level 94 MG/DL (30-150) Cholesterol Level 145 MG/DL (< 200) LDL Cholesterol 99 mg/dL (<100) HDL Cholesterol 38 MG/DL (40-60) L Cholesterol/HDL Ratio 3.8 (3.3-4.4) Thyroid Stimulating Hormone (TSH) 2.206 uiU/mL (0.358-3.740) Height (Feet): 5 Height (Inches): 2.00 Weight (Pounds): 132 Medications Current Medications Medications (Trade) Dose Ordered Sig/Nader Route PRN Reason Start Time Stop Time Status Last Admin Dose Admin Acetaminophen (Tylenol) 650 mg Q6H PRN ORAL Mild Pain/Temp > 100.5 01/05/18 23:30 02/04/18 23:29 Acetaminophen/ Hydrocodone Bitart ([place] 5/325) 1 tab Q6H PRN ORAL Severe Pain (Pain Scale 7-10) 01/05/18 23:30 01/12/18 23:29 01/06/18 02:18 Albuterol Sulfate (Proventil) 2.5 mg Q4H PRN HHN Shortness of Breath 01/06/18 23:30 01/11/18 23:29 Apixaban (Eliquis) 2.5 mg BID ORAL 01/06/18 09:00 02/05/18 08:59 01/06/18 18:33 Atorvastatin Calcium (Lipitor) 40 mg BEDTIME ORAL 01/06/18 21:00 02/05/18 20:59 01/06/18 21:40 Docusate Sodium (Colace) 100 mg TWICE A DAY ORAL 01/06/18 09:00 02/05/18 08:59 01/06/18 18:33 Dolutegravir Sodium (Tivicay) 50 mg DAILY ORAL 01/06/18 09:00 02/05/18 08:59 01/06/18 09:42 Emtricitabine/ Tenofovir (T[place] 200/ 300mg) 1 tab DAILY ORAL 01/06/18 16:30 02/05/18 16:29 01/06/18 18:33 Gabapentin (Neurontin) 300 mg BID ORAL 01/06/18 09:00 02/05/18 08:59 01/06/18 18:32 Insulin Aspart (NovoLOG) BEFORE MEALS AND HS SUBQ 01/06/18 06:30 02/05/18 06:29 01/06/18 21:42 Insulin Detemir (Levemir) 20 units BEDTIME SUBQ 01/06/18 21:00 02/05/18 20:59 01/06/18 21:41 Ipratropium [place] (Atrovent) 500 mcg Q6H PRN HHN Shortness of Breath 01/05/18 23:30 01/10/18 23:29 Losartan Potassium (Cozaar) 50 mg DAILY ORAL 01/06/18 09:00 02/05/18 08:59 01/06/18 09:42 Ondansetron HCl (Zofran) 4 mg Q6H PRN IVP Nausea & Vomiting 01/05/18 23:30 02/04/18 23:29 Pantoprazole (Protonix) 40 mg ACBREAKFAST ORAL 01/06/18 06:30 02/05/18 06:29 01/06/18 06:16 Potassium Chloride (K-Dur) 20 meq BID ORAL 01/06/18 09:00 02/05/18 08:59 01/06/18 18:32 Quetiapine Fumarate (SEROquel) 25 mg TWICE A DAY ORAL 01/06/18 09:00 02/05/18 08:59 01/06/18 18:32 Sitagliptin Phosphate (Januvia) 100 mg DAILY ORAL 01/06/18 09:00 02/05/18 08:59 01/06/18 09:42 Assessment/Plan Status: stable Assessment/Plan MDD ?dementia? by history failure to thrive -seroquel 25 bid David Allison M.D. Jan 06, 2018 22:44
--- NOTE | 2018-01-06 22:46 | General Progress Note ---
Assessment/Plan Status: stable, progressing Assessment/Plan MDD ?dementia? by history failure to thrive -dc seroquel 25 bid -remeron 15mg po qhs Subjective Date patient seen: Jan 06, 2018 Neurologic/Psychiatric: Reports: anxiety, depressed, emotional problems Allergies: Coded Allergies: No Known Allergies (Unverified , 01/05/18) Objective Last 24 Hour Vital Signs Date Time Temp Pulse Resp B/P (MAP) Pulse Ox O2 Delivery O2 Flow Rate FiO2 01/06/18 21:09 72 16 Room Air 21 01/06/18 20:00 98.1 66 20 139/71 99 Room Air 98.1 01/06/18 16:00 63 01/06/18 16:00 97.3 63 18 103/58 98 Room Air 97.3 01/06/18 12:00 97.5 68 18 108/62 99 Room Air 97.5 01/06/18 09:42 133/73 01/06/18 08:00 97.2 80 18 133/73 Room Air 97.2 01/06/18 07:30 66 16 Room Air 21 01/06/18 04:00 61 01/06/18 04:00 98.0 78 18 120/73 99 Room Air 98.0 01/06/18 00:00 61 01/06/18 00:00 97.7 66 18 101/58 99 Room Air 97.7 Intake and Output 01/05/18 01/06/18 19:00 07:00 Intake Total 0 ml Output Total 700 ml Balance 0 ml -700 ml Intake Oral 0 ml Output Urine Total 700 ml Laboratory Tests 01/06/18 06:27: White Blood Count 8.8, Red Blood Count 4.07L, Hemoglobin 10.9L, Hematocrit 33.6L , Mean Corpuscular Volume 83, Mean Corpuscular Hemoglobin 26.8L, Mean Corpuscular Hemoglobin Concent 32.4, Red Cell Distribution Width 14.3, Platelet Count 301, Mean Platelet Volume 7.7, Neutrophils (%) (Auto) 57.0, Lymphocytes (% ) (Auto) 33.0, Monocytes (%) (Auto) 7.9, Eosinophils (%) (Auto) 1.2, Basophils ( %) (Auto) 0.9, Sodium Level 138, Potassium Level 4.2, Chloride Level 105, Carbon Dioxide Level 27, Anion Gap 6, Blood Urea Nitrogen 22H, Creatinine 1.1, Estimat Glomerular Filtration Rate 59.5, Glucose Level 150#H, Hemoglobin A1c 8.5H, Calcium Level 9.1, Total Bilirubin 0.5, Aspartate Amino Transf (AST/SGOT) 101H, Alanine Aminotransferase (ALT/SGPT) 84H, Alkaline Phosphatase 209H, Troponin I 0.000, Total Protein 8.1, Albumin 2.4L, Globulin 5.7, Albumin/ Globulin Ratio 0.4L, Triglycerides Level 94, Cholesterol Level 145, LDL Cholesterol 99, HDL Cholesterol 38L, Cholesterol/HDL Ratio 3.8, Thyroid Stimulating Hormone (TSH) 2.206 Height (Feet): 5 Height (Inches): 2.00 Weight (Pounds): 132 General Appearance: no apparent distress, alert Neurologic: oriented x 3, responsive, depressed affect David Allison M.D. Jan 06, 2018 22:46
[2018-01-06] MEDS ORDERED: Albuterol ud Inhalation HHN PRN (23:30)
[2018-01-07] VITALS: BP 113/71
[2018-01-07 04:00] VITALS: BP 120/73
[2018-01-07] MEDS: NovoLOG Insulin Flexpen SUBQ SCH ×4 (06:06→20:52)
[2018-01-07 08:00] VITALS: BP 105/71
[2018-01-07] MEDS: Docusate 100mg cap ORAL SCH ×2 (08:34→18:02)
[2018-01-07] MEDS: Eliquis 2.5mg tablet ORAL SCH ×2 (08:34→18:02)
[2018-01-07] MEDS: Losartan 50mg tab ORAL SCH (08:36)
[2018-01-07] MEDS: Dolutegravir Sodium 50mg tab ORAL SCH (08:37)
[2018-01-07 08:44] LABS: HEMATOCRIT 35.2 % (37.0-47.0); HEMOGLOBIN 11.4 G/DL (12.0-16.0); LYMPHOCYTES % (AUTO) 30.5 % (20.0-45.0); MEAN CORPUSCULAR VOLUME 82 FL (80-99); MONOCYTES % (AUTO) 9.1 % (1.0-10.0); NEUTROPHILS % (AUTO) 58.3 % (45.0-75.0); PLATELET COUNT 299 K/UL (150-450); RED BLOOD COUNT 4.28 M/UL (4.20-5.40); RED CELL DISTRIBUTION WIDTH 14.5 % (11.6-14.8); WHITE BLOOD COUNT 8.3 K/UL (4.8-10.8)
[2018-01-07 09:06] LABS: ALANINE AMINOTRANSFERASE 80 U/L (12-78); ALBUMIN 2.4 G/DL (3.4-5.0); ALBUMIN/GLOBULIN RATIO 0.4 (1.0-2.7); ALKALINE PHOSPHATASE 224 U/L (46-116); ANION GAP 8 mmol/L (5-15); ASPARTATE AMINO TRANSFERASE 96 U/L (15-37); BILIRUBIN,TOTAL 0.6 MG/DL (0.2-1.0); BLOOD UREA NITROGEN 21 mg/dL (7-18); CALCIUM 9.6 MG/DL (8.5-10.1); CARBON DIOXIDE 26 MMOL/L (21-32); CHLORIDE 104 MMOL/L (98-107); CREATININE 1.1 MG/DL (0.55-1.30); POTASSIUM 4.2 MMOL/L (3.5-5.1); SODIUM 138 MMOL/L (136-145)
--- NOTE | 2018-01-07 10:58 | Diagnostic Imaging Report ---
Indication: Abdominal distention Technique: Arellano-scale and duplex images of the upper abdomen were obtained Comparison: none Findings: Gallbladder is surgically absent. Common bile duct measures 2 mm in diameter. No intrahepatic biliary ductal dilatation. Liver demonstrates normal echogenicity, no focal abnormality. It is slightly enlarged. There is no surface nodularity Portal vein and hepatic veins are patent. Pancreas is unremarkable. Spleen is unremarkable. Left kidney measures 10.1 cm in length. Right kidney measures 10.6 cm length. Both kidneys demonstrate normal echogenicity. There is no hydronephrosis. The right kidney demonstrates a small cyst . Non-aneurysmal abdominal aorta . Impression: Prior cholecystectomy. Negative for dilated ducts Borderline hepatomegaly Incidental finding small right renal cyst
[2018-01-07 12:00] VITALS: BP 108/68
--- NOTE | 2018-01-07 12:57 | General Progress Note ---
Assessment/Plan Status: stable Assessment/Plan 1. Wasting syndrome - deconditioning. 2. HIV. 3. Renal failure, age indeterminate. 4. Abnormal LFT. 5. Malnourishment - moderate. 6. Anemia. 7. Dementia. 8. GI and DVT prophylaxis. 9. Diabetes. Plan: Current management. Will optimse medication Subjective ROS Limited/Unobtainable: Yes Constitutional: Reports: no symptoms HEENT: Reports: no symptoms Cardiovascular: Reports: no symptoms Respiratory: Reports: no symptoms Allergies: Coded Allergies: No Known Allergies (Unverified , 01/05/18) Objective Last 24 Hour Vital Signs Date Time Temp Pulse Resp B/P (MAP) Pulse Ox O2 Delivery O2 Flow Rate FiO2 01/07/18 08:36 105/71 01/07/18 08:00 97.2 64 18 105/71 99 Room Air 97.2 01/07/18 08:00 66 01/07/18 07:00 103 20 Room Air 21 01/07/18 04:00 64 01/07/18 04:00 98.0 74 18 120/73 98 Room Air 98.0 01/07/18 00:00 97.7 68 20 113/71 100 Room Air 97.7 01/07/18 00:00 62 01/06/18 21:09 72 16 Room Air 21 01/06/18 20:00 67 01/06/18 20:00 98.1 66 20 139/71 99 Room Air 98.1 01/06/18 16:00 63 01/06/18 16:00 97.3 63 18 103/58 98 Room Air 97.3 Intake and Output 01/06/18 01/07/18 19:00 07:00 Intake Total 120 ml 240 ml Output Total 250 ml Balance -130 ml 240 ml Intake Oral 120 ml 240 ml Output Urine Total 250 ml # Bowel Movements 1 1 Laboratory Tests 01/07/18 07:00: White Blood Count 8.3, Red Blood Count 4.28, Hemoglobin 11.4L, Hematocrit 35.2L , Mean Corpuscular Volume 82, Mean Corpuscular Hemoglobin 26.5L, Mean Corpuscular Hemoglobin Concent 32.3, Red Cell Distribution Width 14.5, Platelet Count 299, Mean Platelet Volume 7.9, Neutrophils (%) (Auto) 58.3, Lymphocytes (% ) (Auto) 30.5, Monocytes (%) (Auto) 9.1, Eosinophils (%) (Auto) 1.0, Basophils ( %) (Auto) 1.0, Sodium Level 138, Potassium Level 4.2, Chloride Level 104, Carbon Dioxide Level 26, Anion Gap 8, Blood Urea Nitrogen 21H, Creatinine 1.1, Estimat Glomerular Filtration Rate 59.5, Glucose Level 111H, Calcium Level 9.6, Total Bilirubin 0.6, Aspartate Amino Transf (AST/SGOT) 96H, Alanine Aminotransferase (ALT/SGPT) 80H, Alkaline Phosphatase 224H, Total Protein 8.4H, Albumin 2.4L, Globulin 6.0, Albumin/Globulin Ratio 0.4L 01/07/18 09:20: White Blood Count [Pending], Lymphocytes [Pending], Percent CD3 Cells [Pending] , Absolute CD3 Count [Pending], Percent CD4 Cells [Pending], Absolute CD4 Count [Pending], T-Lymphocyte CD4/CD8 Ratio [Pending], Percent CD8 Cells [Pending], Absolute CD8 Count [Pending], Rapid Plasma Reagin [Pending], Hepatitis A IgM Antibody [Pending], Hepatitis B Surface Antigen [Pending], Hepatitis B Core IgM Antibody [Pending], Hepatitis C Antibody [Pending], HIV-1 RNA (PCR) log10 Value [Pending], HIV-1 RNA Ultraquantitative (PCR) [Pending] Height (Feet): 5 Height (Inches): 2.00 Weight (Pounds): 132 General Appearance: no apparent distress, other - confused, grossly demented EENT: PERRL/EOMI Neck: supple Cardiovascular: normal rate Respiratory/Chest: lungs clear Abdomen: soft Extremities: non-tender, other - decreased muscles mass Neurologic: tongue and groove machine setter II-XII grossly normal Tarik Alves MD Jan 07, 2018 12:57
--- NOTE | 2018-01-07 13:16 | General Progress Note ---
Assessment/Plan Status: stable, progressing Assessment/Plan MDD ?dementia? by history failure to thrive -dc seroquel 25 bid -remeron 15mg po qhs Subjective Date patient seen: Jan 07, 2018 Neurologic/Psychiatric: Reports: anxiety, depressed, emotional problems Allergies: Coded Allergies: No Known Allergies (Unverified , 01/05/18) Subjective the pt is doing well no behavioral issues Objective Last 24 Hour Vital Signs Date Time Temp Pulse Resp B/P (MAP) Pulse Ox O2 Delivery O2 Flow Rate FiO2 01/07/18 08:36 105/71 01/07/18 08:00 97.2 64 18 105/71 99 Room Air 97.2 01/07/18 08:00 66 01/07/18 07:00 103 20 Room Air 21 01/07/18 04:00 64 01/07/18 04:00 98.0 74 18 120/73 98 Room Air 98.0 01/07/18 00:00 97.7 68 20 113/71 100 Room Air 97.7 01/07/18 00:00 62 01/06/18 21:09 72 16 Room Air 21 01/06/18 20:00 67 01/06/18 20:00 98.1 66 20 139/71 99 Room Air 98.1 01/06/18 16:00 63 01/06/18 16:00 97.3 63 18 103/58 98 Room Air 97.3 Intake and Output 01/06/18 01/07/18 19:00 07:00 Intake Total 120 ml 240 ml Output Total 250 ml Balance -130 ml 240 ml Intake Oral 120 ml 240 ml Output Urine Total 250 ml # Bowel Movements 1 1 Laboratory Tests 01/07/18 07:00: White Blood Count 8.3, Red Blood Count 4.28, Hemoglobin 11.4L, Hematocrit 35.2L , Mean Corpuscular Volume 82, Mean Corpuscular Hemoglobin 26.5L, Mean Corpuscular Hemoglobin Concent 32.3, Red Cell Distribution Width 14.5, Platelet Count 299, Mean Platelet Volume 7.9, Neutrophils (%) (Auto) 58.3, Lymphocytes (% ) (Auto) 30.5, Monocytes (%) (Auto) 9.1, Eosinophils (%) (Auto) 1.0, Basophils ( %) (Auto) 1.0, Sodium Level 138, Potassium Level 4.2, Chloride Level 104, Carbon Dioxide Level 26, Anion Gap 8, Blood Urea Nitrogen 21H, Creatinine 1.1, Estimat Glomerular Filtration Rate 59.5, Glucose Level 111H, Calcium Level 9.6, Total Bilirubin 0.6, Aspartate Amino Transf (AST/SGOT) 96H, Alanine Aminotransferase (ALT/SGPT) 80H, Alkaline Phosphatase 224H, Total Protein 8.4H, Albumin 2.4L, Globulin 6.0, Albumin/Globulin Ratio 0.4L 01/07/18 09:20: White Blood Count [Pending], Lymphocytes [Pending], Percent CD3 Cells [Pending] , Absolute CD3 Count [Pending], Percent CD4 Cells [Pending], Absolute CD4 Count [Pending], T-Lymphocyte CD4/CD8 Ratio [Pending], Percent CD8 Cells [Pending], Absolute CD8 Count [Pending], Rapid Plasma Reagin [Pending], Hepatitis A IgM Antibody [Pending], Hepatitis B Surface Antigen [Pending], Hepatitis B Core IgM Antibody [Pending], Hepatitis C Antibody [Pending], HIV-1 RNA (PCR) log10 Value [Pending], HIV-1 RNA Ultraquantitative (PCR) [Pending] Height (Feet): 5 Height (Inches): 2.00 Weight (Pounds): 132 General Appearance: no apparent distress, alert Neurologic: oriented x 3, responsive, depressed affect David Allison M.D. Jan 07, 2018 13:16
--- NOTE | 2018-01-07 15:18 | Infectious Diseases Prog Note ---
Assessment/Plan Assessment/Plan Abx: None Assessment: Assymptomatic bacteriuria -u/a neg, ucx >100K E.coli ( R Cipro/levo, bactrim, otherwise S) -Bcx NTD Wasting syndrome Transient hypotension Afebrile, no leukocytosis -CXR: no acute disease Elevated LFts -abd us: Prior cholecystectomy. Negative for dilated ducts. Borderline hepatomegaly. Incidental finding small right renal cyst Well controlled HIV (per HIV provider notes, CD4 and VL not mentioned) -dx 2000, CD4 >500 at diagnosis -on Truvada and Descovy Afib DM HTN Malnutrition CKD HTN Dementia gastritis MDD Plan: -Continue to monitor off abx unless febrile, leukocytosis -f/u Cd4, HIV VL, RPR -f/u cx -Monitor CBC/BMP, temperatures Thank you for this consultation. Will continue to follow along with you. Discussed with RN. Subjective Allergies: Coded Allergies: No Known Allergies (Unverified , 01/05/18) Subjective afebrile no leukocytosis Bcx NTD Objective Vital Signs Last 24 Hour Vital Signs Date Time Temp Pulse Resp B/P (MAP) Pulse Ox O2 Delivery O2 Flow Rate FiO2 01/07/18 12:00 97.8 70 18 108/68 99 Room Air 21 97.8 01/07/18 12:00 65 01/07/18 08:36 105/71 01/07/18 08:00 97.2 64 18 105/71 99 Room Air 97.2 01/07/18 08:00 66 01/07/18 07:00 103 20 Room Air 21 01/07/18 04:00 64 01/07/18 04:00 98.0 74 18 120/73 98 Room Air 98.0 01/07/18 00:00 97.7 68 20 113/71 100 Room Air 97.7 01/07/18 00:00 62 01/06/18 21:09 72 16 Room Air 21 01/06/18 20:00 67 01/06/18 20:00 98.1 66 20 139/71 99 Room Air 98.1 01/06/18 16:00 63 01/06/18 16:00 97.3 63 18 103/58 98 Room Air 97.3 Height (Feet): 5 Height (Inches): 2.00 Weight (Pounds): 132 Objective General Appearance: normal inspection, alert, Chronically Ill Head: atraumatic ENT: normal ENT inspection, hearing grossly normal, normal voice Neck: normal inspection, supple, no bony tend, limited range of motion Respiratory: normal inspection, lungs clear, normal breath sounds, no respiratory distress, no retraction, no wheezing Cardiovascular : regular rate, rhythm, no edema Gastrointestinal: normal inspection, normal bowel sounds, non tender, soft, no guarding, no hernia Genitourinary: no CVA tenderness Musculoskeletal: normal inspection, back normal, normal range of motion Skin: normal inspection, normal color, no rash Microbiology Date/Time Source Procedure Growth Status 01/05/18 15:53 Blood Blood Culture - Preliminary NO GROWTH AFTER 24 HOURS Resulted 01/05/18 15:46 Blood Blood Culture - Preliminary NO GROWTH AFTER 24 HOURS Resulted 01/05/18 15:38 Urine,Clean Catch Urine Culture - Final Escherichia Coli Complete Laboratory Tests Test 01/07/18 07:00 01/07/18 09:20 White Blood Count 8.3 K/UL (4.8-10.8) Pending Red Blood Count 4.28 M/UL (4.20-5.40) Hemoglobin 11.4 G/DL (12.0-16.0) L Hematocrit 35.2 % (37.0-47.0) L Mean Corpuscular Volume 82 FL (80-99) Mean Corpuscular Hemoglobin 26.5 PG (27.0-31.0) L Mean Corpuscular Hemoglobin Concent 32.3 G/DL (32.0-36.0) Red Cell Distribution Width 14.5 % (11.6-14.8) Platelet Count 299 K/UL (150-450) Mean Platelet Volume 7.9 FL (6.5-10.1) Neutrophils (%) (Auto) 58.3 % (45.0-75.0) Lymphocytes (%) (Auto) 30.5 % (20.0-45.0) Monocytes (%) (Auto) 9.1 % (1.0-10.0) Eosinophils (%) (Auto) 1.0 % (0.0-3.0) Basophils (%) (Auto) 1.0 % (0.0-2.0) Sodium Level 138 MMOL/L (136-145) Potassium Level 4.2 MMOL/L (3.5-5.1) Chloride Level 104 MMOL/L (98-107) Carbon Dioxide Level 26 MMOL/L (21-32) Anion Gap 8 mmol/L (5-15) Blood Urea Nitrogen 21 mg/dL (7-18) H Creatinine 1.1 MG/DL (0.55-1.30) Estimat Glomerular Filtration Rate 59.5 mL/min (>60) Glucose Level 111 MG/DL (74-106) H Calcium Level 9.6 MG/DL (8.5-10.1) Total Bilirubin 0.6 MG/DL (0.2-1.0) Aspartate Amino Transf (AST/SGOT) 96 U/L (15-37) H Alanine Aminotransferase (ALT/SGPT) 80 U/L (12-78) H Alkaline Phosphatase 224 U/L (46-116) H Total Protein 8.4 G/DL (6.4-8.2) H Albumin 2.4 G/DL (3.4-5.0) L Globulin 6.0 g/dL Albumin/Globulin Ratio 0.4 (1.0-2.7) L Lymphocytes Pending Percent CD3 Cells Pending Absolute CD3 Count Pending Percent CD4 Cells Pending Absolute CD4 Count Pending T-Lymphocyte CD4/CD8 Ratio Pending Percent CD8 Cells Pending Absolute CD8 Count Pending Rapid Plasma Reagin Pending Hepatitis A IgM Antibody Pending Hepatitis B Surface Antigen Pending Hepatitis B Core IgM Antibody Pending Hepatitis C Antibody Pending HIV-1 RNA (PCR) log10 Value Pending HIV-1 RNA Ultraquantitative (PCR) Pending Current Medications Medications (Trade) Dose Ordered Sig/Nader Route PRN Reason Start Time Stop Time Status Last Admin Dose Admin Acetaminophen (Tylenol) 650 mg Q6H PRN ORAL Mild Pain/Temp > 100.5 01/05/18 23:30 02/04/18 23:29 Acetaminophen/ Hydrocodone Bitart ([place] 5/325) 1 tab Q6H PRN ORAL Severe Pain (Pain Scale 7-10) 01/05/18 23:30 01/12/18 23:29 01/06/18 02:18 Albuterol Sulfate (Proventil) 2.5 mg Q4H PRN HHN Shortness of Breath 01/06/18 23:30 01/11/18 23:29 Apixaban (Eliquis) 2.5 mg BID ORAL 01/06/18 09:00 02/05/18 08:59 01/07/18 08:34 Atorvastatin Calcium (Lipitor) 40 mg BEDTIME ORAL 01/06/18 21:00 02/05/18 20:59 01/06/18 21:40 Docusate Sodium (Colace) 100 mg TWICE A DAY ORAL 01/06/18 09:00 02/05/18 08:59 01/07/18 08:34 Dolutegravir Sodium (Tivicay) 50 mg DAILY ORAL 01/06/18 09:00 02/05/18 08:59 01/07/18 08:37 Emtricitabine/ Tenofovir (Truvada 200/ 300mg) 1 tab DAILY ORAL 01/06/18 16:30 02/05/18 16:29 01/07/18 08:37 Gabapentin (Neurontin) 300 mg BID ORAL 01/06/18 09:00 02/05/18 08:59 01/07/18 08:34 Insulin Aspart (NovoLOG) BEFORE MEALS AND HS SUBQ 01/06/18 06:30 02/05/18 06:29 01/06/18 21:42 Insulin Detemir (Levemir) 20 units BEDTIME SUBQ 01/06/18 21:00 02/05/18 20:59 01/06/18 21:41 Ipratropium [place] (Atrovent) 500 mcg Q6H PRN HHN Shortness of Breath 01/05/18 23:30 01/10/18 23:29 Losartan Potassium (Cozaar) 50 mg DAILY ORAL 01/06/18 09:00 02/05/18 08:59 01/06/18 09:42 Mirtazapine (Remeron) 15 mg BEDTIME ORAL 01/06/18 23:00 02/05/18 22:59 01/06/18 23:43 Ondansetron HCl (Zofran) 4 mg Q6H PRN IVP Nausea & Vomiting 01/05/18 23:30 02/04/18 23:29 Pantoprazole (Protonix) 40 mg ACBREAKFAST ORAL 01/06/18 06:30 02/05/18 06:29 01/07/18 06:05 Potassium Chloride (K-Dur) 20 meq BID ORAL 01/06/18 09:00 02/05/18 08:59 01/07/18 08:34 Sitagliptin Phosphate (Januvia) 100 mg DAILY ORAL 01/06/18 09:00 02/05/18 08:59 01/07/18 08:34 Sarah Tsai M.D. Jan 07, 2018 15:17
[2018-01-07 16:00] VITALS: BP 141/72
[2018-01-07 20:00] VITALS: BP 140/75
[2018-01-07] MEDS: Atorvastatin 20mg tab ORAL SCH (20:49)
[2018-01-07] MEDS: Levemir Flexpen SUBQ SCH (20:51)
--- NOTE | 2018-01-07 22:42 | Cardiology Progress Note ---
Assessment/Plan Assessment/Plan 1. Hypotension, resolved, possibly intravascular volume depletion as the patient has poor p.o. intake. 2. History of paroxysmal atrial fibrillation, currently in sinus rhythm, on apixaban. 3. Possible sick sinus syndrome, status post dual-chamber pacemaker implantation. 4. Cardiomyopathy with LVEF ~40%, continue losartan. Start coreg 3.125mg po bid. 5. Severe mitral regurgitation, will require to review echo in details. Subjective Subjective Sinus rhythm at 67. Objective Last 24 Hour Vital Signs Date Time Temp Pulse Resp B/P (MAP) Pulse Ox O2 Delivery O2 Flow Rate FiO2 01/07/18 20:00 98.2 69 20 140/75 98 Room Air 21 98.2 01/07/18 19:26 68 18 Room Air 21 01/07/18 16:00 98.1 67 18 141/72 98 Room Air 21 98.1 01/07/18 16:00 70 01/07/18 12:00 97.8 70 18 108/68 99 Room Air 21 97.8 01/07/18 12:00 65 01/07/18 08:36 105/71 01/07/18 08:00 97.2 64 18 105/71 99 Room Air 97.2 01/07/18 08:00 66 01/07/18 07:00 103 20 Room Air 21 01/07/18 04:00 64 01/07/18 04:00 98.0 74 18 120/73 98 Room Air 98.0 01/07/18 00:00 97.7 68 20 113/71 100 Room Air 97.7 01/07/18 00:00 62 Intake and Output 01/06/18 01/07/18 19:00 07:00 Intake Total 120 ml 240 ml Output Total 250 ml Balance -130 ml 240 ml Intake Oral 120 ml 240 ml Output Urine Total 250 ml # Bowel Movements 1 1 2D Echo: EF 40%, Global LV HK, Mild LVH, JOSÉ LUIS, Sev MR/Mod AR, RVSP 53 mmHg Laboratory Tests Test 01/07/18 07:00 01/07/18 09:20 White Blood Count 8.3 K/UL (4.8-10.8) Pending Red Blood Count 4.28 M/UL (4.20-5.40) Hemoglobin 11.4 G/DL (12.0-16.0) L Hematocrit 35.2 % (37.0-47.0) L Mean Corpuscular Volume 82 FL (80-99) Mean Corpuscular Hemoglobin 26.5 PG (27.0-31.0) L Mean Corpuscular Hemoglobin Concent 32.3 G/DL (32.0-36.0) Red Cell Distribution Width 14.5 % (11.6-14.8) Platelet Count 299 K/UL (150-450) Mean Platelet Volume 7.9 FL (6.5-10.1) Neutrophils (%) (Auto) 58.3 % (45.0-75.0) Lymphocytes (%) (Auto) 30.5 % (20.0-45.0) Monocytes (%) (Auto) 9.1 % (1.0-10.0) Eosinophils (%) (Auto) 1.0 % (0.0-3.0) Basophils (%) (Auto) 1.0 % (0.0-2.0) Sodium Level 138 MMOL/L (136-145) Potassium Level 4.2 MMOL/L (3.5-5.1) Chloride Level 104 MMOL/L (98-107) Carbon Dioxide Level 26 MMOL/L (21-32) Anion Gap 8 mmol/L (5-15) Blood Urea Nitrogen 21 mg/dL (7-18) H Creatinine 1.1 MG/DL (0.55-1.30) Estimat Glomerular Filtration Rate 59.5 mL/min (>60) Glucose Level 111 MG/DL (74-106) H Calcium Level 9.6 MG/DL (8.5-10.1) Total Bilirubin 0.6 MG/DL (0.2-1.0) Aspartate Amino Transf (AST/SGOT) 96 U/L (15-37) H Alanine Aminotransferase (ALT/SGPT) 80 U/L (12-78) H Alkaline Phosphatase 224 U/L (46-116) H Total Protein 8.4 G/DL (6.4-8.2) H Albumin 2.4 G/DL (3.4-5.0) L Globulin 6.0 g/dL Albumin/Globulin Ratio 0.4 (1.0-2.7) L Lymphocytes Pending Percent CD3 Cells Pending Absolute CD3 Count Pending Percent CD4 Cells Pending Absolute CD4 Count Pending T-Lymphocyte CD4/CD8 Ratio Pending Percent CD8 Cells Pending Absolute CD8 Count Pending Rapid Plasma Reagin Pending Hepatitis A IgM Antibody Pending Hepatitis B Surface Antigen Pending Hepatitis B Core IgM Antibody Pending Hepatitis C Antibody Pending HIV-1 RNA (PCR) log10 Value Pending HIV-1 RNA Ultraquantitative (PCR) Pending Microbiology Date/Time Source Procedure Growth Status 01/05/18 15:53 Blood Blood Culture - Preliminary NO GROWTH AFTER 24 HOURS Resulted 01/05/18 15:46 Blood Blood Culture - Preliminary NO GROWTH AFTER 24 HOURS Resulted 01/05/18 15:38 Urine,Clean Catch Urine Culture - Final Escherichia Coli Complete Objective HEENT: Atraumatic and normocephalic. ENT, pupils are equal, round, and reactive to light and accommodation. Extraocular muscles intact. NECK: JVP is less than 5 cm. No carotid bruit. Carotid upstrokes 2+ bilaterally. CARDIOVASCULAR: Normal S1 and S2. Regular rate and rhythm. No murmurs, gallops, or rubs. PMI is at fourth intercostal space in the midclavicular line. LUNGS: Clear to auscultation bilaterally. ABDOMEN: Soft, nontender, and nondistended. No hepatosplenomegaly. Positive bowel sounds. EXTREMITIES: No evidence of edema, clubbing, or cyanosis. SOFIE RDZ Jan 07, 2018 22:42
[2018-01-08] VITALS: BP 143/72
[2018-01-08 04:00] VITALS: BP 128/87
[2018-01-08] MEDS: NovoLOG Insulin Flexpen SUBQ SCH ×4 (06:17→22:04)
[2018-01-08 07:13] LABS: BASOPHILS % (AUTO) 1.9 % (0.0-2.0); EOSINOPHILS % (AUTO) 0.7 % (0.0-3.0); HEMATOCRIT 34.2 % (37.0-47.0); HEMOGLOBIN 10.8 G/DL (12.0-16.0); LYMPHOCYTES % (AUTO) 23.3 % (20.0-45.0); MEAN CORPUSCULAR VOLUME 82 FL (80-99); MONOCYTES % (AUTO) 12.7 % (1.0-10.0); NEUTROPHILS % (AUTO) 61.5 % (45.0-75.0); PLATELET COUNT 290 K/UL (150-450); RED BLOOD COUNT 4.16 M/UL (4.20-5.40); RED CELL DISTRIBUTION WIDTH 14.4 % (11.6-14.8); WHITE BLOOD COUNT 10.1 K/UL (4.8-10.8)
[2018-01-08 07:27] LABS: ALANINE AMINOTRANSFERASE 77 U/L (12-78); ALBUMIN 2.4 G/DL (3.4-5.0); ALBUMIN/GLOBULIN RATIO 0.4 (1.0-2.7); ALKALINE PHOSPHATASE 227 U/L (46-116); ANION GAP 8 mmol/L (5-15); ASPARTATE AMINO TRANSFERASE 99 U/L (15-37); BILIRUBIN,TOTAL 0.5 MG/DL (0.2-1.0); BLOOD UREA NITROGEN 26 mg/dL (7-18); CALCIUM 8.9 MG/DL (8.5-10.1); CARBON DIOXIDE 27 MMOL/L (21-32); CHLORIDE 105 MMOL/L (98-107); CREATININE 1.4 MG/DL (0.55-1.30); POTASSIUM 4.2 MMOL/L (3.5-5.1); SODIUM 140 MMOL/L (136-145)
[2018-01-08 08:00] VITALS: BP 157/78
[2018-01-08] MEDS: Docusate 100mg cap ORAL SCH ×2 (09:11→17:35)
[2018-01-08] MEDS: Eliquis 2.5mg tablet ORAL SCH ×2 (09:11→17:35)
[2018-01-08] MEDS: Dolutegravir Sodium 50mg tab ORAL SCH (09:11)
[2018-01-08] MEDS: Losartan 50mg tab ORAL SCH (09:12)
[2018-01-08 12:00] VITALS: BP 124/70
--- NOTE | 2018-01-08 12:43 | Infectious Diseases Prog Note ---
Assessment/Plan Assessment/Plan Abx: None Assessment: Assymptomatic bacteriuria -u/a neg, ucx >100K E.coli ( R Cipro/levo, bactrim, otherwise S) -Bcx NTD Wasting syndrome Transient hypotension Positive RPR- ?prior treated infections vs new infection (low titers) -RPR 1:1 Afebrile, no leukocytosis -CXR: no acute disease Elevated LFts -abd us: Prior cholecystectomy. Negative for dilated ducts. Borderline hepatomegaly. Incidental finding small right renal cyst Well controlled HIV (per HIV provider notes, CD4 and VL not mentioned) -dx 2000, CD4 >500 at diagnosis -on Truvada and Descovy Hep C- failed 6 months tx Afib DM HTN Malnutrition CKD HTN Dementia gastritis MDD Plan: -Will give one time dose of PNC 2.4 millions unit given positive RPR -can follow with hiv provider and compare with prior titers if a latent syphilis treatment is needed -Continue to monitor off abx unless febrile, leukocytosis -f/u Cd4, HIV VL -f/u cx -Monitor CBC/BMP, temperatures Thank you for this consultation. Will continue to follow along with you. Discussed with RN. Subjective Allergies: Coded Allergies: No Known Allergies (Unverified , 01/05/18) Subjective afebrile no leukocytosis Bcx NTD + RPR, low titers Objective Vital Signs Last 24 Hour Vital Signs Date Time Temp Pulse Resp B/P (MAP) Pulse Ox O2 Delivery O2 Flow Rate FiO2 01/08/18 09:54 81 18 Room Air 21 01/08/18 09:12 157/78 01/08/18 08:00 98.2 67 19 157/78 100 Room Air 98.2 01/08/18 04:00 98.1 77 20 128/87 100 Room Air 98.1 01/08/18 00:00 97.7 62 20 143/72 97 Room Air 21 97.7 01/07/18 20:00 84 01/07/18 20:00 98.2 69 20 140/75 98 Room Air 21 98.2 01/07/18 19:26 68 18 Room Air 21 01/07/18 16:00 98.1 67 18 141/72 98 Room Air 21 98.1 01/07/18 16:00 70 Height (Feet): 5 Height (Inches): 2.00 Weight (Pounds): 132 Objective General Appearance: normal inspection, alert, Chronically Ill Head: atraumatic ENT: normal ENT inspection, hearing grossly normal, normal voice Neck: normal inspection, supple, no bony tend, limited range of motion Respiratory: normal inspection, lungs clear, normal breath sounds, no respiratory distress, no retraction, no wheezing Cardiovascular : regular rate, rhythm, no edema Gastrointestinal: normal inspection, normal bowel sounds, non tender, soft, no guarding, no hernia Genitourinary: no CVA tenderness Musculoskeletal: normal inspection, back normal, normal range of motion Skin: normal inspection, normal color, no rash Microbiology Date/Time Source Procedure Growth Status 01/05/18 15:53 Blood Blood Culture - Preliminary NO GROWTH AFTER 48 HOURS Resulted 01/05/18 15:46 Blood Blood Culture - Preliminary NO GROWTH AFTER 48 HOURS Resulted 01/05/18 15:38 Urine,Clean Catch Urine Culture - Final Escherichia Coli Complete Laboratory Tests Test 01/08/18 06:40 White Blood Count 10.1 K/UL (4.8-10.8) Red Blood Count 4.16 M/UL (4.20-5.40) L Hemoglobin 10.8 G/DL (12.0-16.0) L Hematocrit 34.2 % (37.0-47.0) L Mean Corpuscular Volume 82 FL (80-99) Mean Corpuscular Hemoglobin 26.0 PG (27.0-31.0) L Mean Corpuscular Hemoglobin Concent 31.6 G/DL (32.0-36.0) L Red Cell Distribution Width 14.4 % (11.6-14.8) Platelet Count 290 K/UL (150-450) Mean Platelet Volume 7.8 FL (6.5-10.1) Neutrophils (%) (Auto) 61.5 % (45.0-75.0) Lymphocytes (%) (Auto) 23.3 % (20.0-45.0) Monocytes (%) (Auto) 12.7 % (1.0-10.0) H Eosinophils (%) (Auto) 0.7 % (0.0-3.0) Basophils (%) (Auto) 1.9 % (0.0-2.0) Sodium Level 140 MMOL/L (136-145) Potassium Level 4.2 MMOL/L (3.5-5.1) Chloride Level 105 MMOL/L (98-107) Carbon Dioxide Level 27 MMOL/L (21-32) Anion Gap 8 mmol/L (5-15) Blood Urea Nitrogen 26 mg/dL (7-18) H Creatinine 1.4 MG/DL (0.55-1.30) H Estimat Glomerular Filtration Rate 45.1 mL/min (>60) Glucose Level 144 MG/DL (74-106) H Calcium Level 8.9 MG/DL (8.5-10.1) Total Bilirubin 0.5 MG/DL (0.2-1.0) Aspartate Amino Transf (AST/SGOT) 99 U/L (15-37) H Alanine Aminotransferase (ALT/SGPT) 77 U/L (12-78) Alkaline Phosphatase 227 U/L (46-116) H Total Protein 8.5 G/DL (6.4-8.2) H Albumin 2.4 G/DL (3.4-5.0) L Globulin 6.1 g/dL Albumin/Globulin Ratio 0.4 (1.0-2.7) L Current Medications Medications (Trade) Dose Ordered Sig/Nader Route PRN Reason Start Time Stop Time Status Last Admin Dose Admin Acetaminophen (Tylenol) 650 mg Q6H PRN ORAL Mild Pain/Temp > 100.5 01/05/18 23:30 02/04/18 23:29 Acetaminophen/ Hydrocodone Bitart ([place] 5/325) 1 tab Q6H PRN ORAL Severe Pain (Pain Scale 7-10) 01/05/18 23:30 01/12/18 23:29 01/06/18 02:18 Albuterol Sulfate (Proventil) 2.5 mg Q4H PRN HHN Shortness of Breath 01/06/18 23:30 01/11/18 23:29 Apixaban (Eliquis) 2.5 mg BID ORAL 01/06/18 09:00 02/05/18 08:59 01/08/18 09:11 Atorvastatin Calcium (Lipitor) 40 mg BEDTIME ORAL 01/06/18 21:00 02/05/18 20:59 01/07/18 20:49 Docusate Sodium (Colace) 100 mg TWICE A DAY ORAL 01/06/18 09:00 02/05/18 08:59 01/08/18 09:11 Dolutegravir Sodium (Tivicay) 50 mg DAILY ORAL 01/06/18 09:00 02/05/18 08:59 01/08/18 09:11 Emtricitabine/ Tenofovir (Truvada 200/ 300mg) 1 tab DAILY ORAL 01/06/18 16:30 02/05/18 16:29 01/08/18 09:11 Gabapentin (Neurontin) 300 mg BID ORAL 01/06/18 09:00 02/05/18 08:59 01/08/18 09:11 Insulin Aspart (NovoLOG) BEFORE MEALS AND HS SUBQ 01/06/18 06:30 02/05/18 06:29 01/08/18 06:17 Insulin Detemir (Levemir) 20 units BEDTIME SUBQ 01/06/18 21:00 02/05/18 20:59 01/07/18 20:51 Ipratropium [place] (Atrovent) 500 mcg Q6H PRN HHN Shortness of Breath 01/05/18 23:30 01/10/18 23:29 Lorazepam (Ativan) 1 mg Q6H PRN ORAL For Anxiety 01/08/18 12:30 01/15/18 12:29 Losartan Potassium (Cozaar) 50 mg DAILY ORAL 01/06/18 09:00 02/05/18 08:59 01/08/18 09:12 Mirtazapine (Remeron) 15 mg BEDTIME ORAL 01/06/18 23:00 02/05/18 22:59 01/07/18 20:49 Ondansetron HCl (Zofran) 4 mg Q6H PRN IVP Nausea & Vomiting 01/05/18 23:30 02/04/18 23:29 Pantoprazole (Protonix) 40 mg ACBREAKFAST ORAL 01/06/18 06:30 02/05/18 06:29 01/08/18 06:16 Potassium Chloride (K-Dur) 20 meq BID ORAL 01/06/18 09:00 02/05/18 08:59 01/08/18 09:11 Sitagliptin Phosphate (Januvia) 100 mg DAILY ORAL 01/06/18 09:00 02/05/18 08:59 01/08/18 09:11 Sarah Tsai M.D. Jan 08, 2018 12:43
[2018-01-08] MEDS: LORazepam 1mg tab ORAL PRN (13:13)
[2018-01-08] MEDS ORDERED: Bicillin LA 2,400,000 units IM ONE (14:00)
--- NOTE | 2018-01-08 14:17 | General Progress Note ---
Assessment/Plan Assessment/Plan MDD Dementia failure to thrive -dc seroquel 25 bid -remeron 15mg po qhs -ativan prn -the pt lacks capacity to leave [facility]a Subjective Date patient seen: Jan 08, 2018 Neurologic/Psychiatric: Reports: anxiety, depressed Allergies: Coded Allergies: No Known Allergies (Unverified , 01/05/18) Subjective the pt is agitated today. She wants to leave ama. the pt is confused and irrational. Objective Last 24 Hour Vital Signs Date Time Temp Pulse Resp B/P (MAP) Pulse Ox O2 Delivery O2 Flow Rate FiO2 01/08/18 12:00 98.1 72 20 124/70 98 Room Air 98.1 01/08/18 09:54 81 18 Room Air 21 01/08/18 09:12 157/78 01/08/18 08:00 98.2 67 19 157/78 100 Room Air 98.2 01/08/18 04:00 98.1 77 20 128/87 100 Room Air 98.1 01/08/18 00:00 97.7 62 20 143/72 97 Room Air 21 97.7 01/07/18 20:00 84 01/07/18 20:00 98.2 69 20 140/75 98 Room Air 21 98.2 01/07/18 19:26 68 18 Room Air 21 01/07/18 16:00 98.1 67 18 141/72 98 Room Air 21 98.1 01/07/18 16:00 70 Intake and Output 01/07/18 01/08/18 19:00 07:00 Intake Total 1100 ml Balance 1100 ml Intake Oral 1100 ml # Voids 2 2 # Bowel Movements 1 1 Laboratory Tests 01/08/18 06:40: White Blood Count 10.1, Red Blood Count 4.16L, Hemoglobin 10.8L, Hematocrit 34.2L, Mean Corpuscular Volume 82, Mean Corpuscular Hemoglobin 26.0L, Mean Corpuscular Hemoglobin Concent 31.6L, Red Cell Distribution Width 14.4, Platelet Count 290, Mean Platelet Volume 7.8, Neutrophils (%) (Auto) 61.5, Lymphocytes (%) (Auto) 23.3, Monocytes (%) (Auto) 12.7H, Eosinophils (%) (Auto) 0.7, Basophils (%) (Auto) 1.9, Sodium Level 140, Potassium Level 4.2, Chloride Level 105, Carbon Dioxide Level 27, Anion Gap 8, Blood Urea Nitrogen 26H, Creatinine 1.4H, Estimat Glomerular Filtration Rate 45.1, Glucose Level 144H, Calcium Level 8.9, Total Bilirubin 0.5, Aspartate Amino Transf (AST/SGOT) 99H, Alanine Aminotransferase (ALT/SGPT) 77, Alkaline Phosphatase 227H, Total Protein 8.5H, Albumin 2.4L, Globulin 6.1, Albumin/Globulin Ratio 0.4L Height (Feet): 5 Height (Inches): 2.00 Weight (Pounds): 132 General Appearance: WD/WN, alert, confused, agitated David Allison M.D. Jan 08, 2018 14:17
--- NOTE | 2018-01-08 15:37 | Internal Med Progress Note ---
Subjective Date of Service: Jan 08, 2018 Physician Name Romero,Nidia Attending Physician Tarik Alves MD Current Medications Medications (Trade) Dose Ordered Sig/Nader Route PRN Reason Start Time Stop Time Status Last Admin Dose Admin Acetaminophen (Tylenol) 650 mg Q6H PRN ORAL Mild Pain/Temp > 100.5 01/05/18 23:30 02/04/18 23:29 Acetaminophen/ Hydrocodone Bitart ([place] 5/325) 1 tab Q6H PRN ORAL Severe Pain (Pain Scale 7-10) 01/05/18 23:30 01/12/18 23:29 01/06/18 02:18 Albuterol Sulfate (Proventil) 2.5 mg Q4H PRN HHN Shortness of Breath 01/06/18 23:30 01/11/18 23:29 Apixaban (Eliquis) 2.5 mg BID ORAL 01/06/18 09:00 02/05/18 08:59 01/08/18 09:11 Atorvastatin Calcium (Lipitor) 40 mg BEDTIME ORAL 01/06/18 21:00 02/05/18 20:59 01/07/18 20:49 Docusate Sodium (Colace) 100 mg TWICE A DAY ORAL 01/06/18 09:00 02/05/18 08:59 01/08/18 09:11 Dolutegravir Sodium (Tivicay) 50 mg DAILY ORAL 01/06/18 09:00 02/05/18 08:59 01/08/18 09:11 Emtricitabine/ Tenofovir (Truvada 200/ 300mg) 1 tab DAILY ORAL 01/06/18 16:30 02/05/18 16:29 01/08/18 09:11 Gabapentin (Neurontin) 300 mg BID ORAL 01/06/18 09:00 02/05/18 08:59 01/08/18 09:11 Insulin Aspart (NovoLOG) BEFORE MEALS AND HS SUBQ 01/06/18 06:30 02/05/18 06:29 01/08/18 06:17 Insulin Detemir (Levemir) 20 units BEDTIME SUBQ 01/06/18 21:00 02/05/18 20:59 01/07/18 20:51 Ipratropium [place] (Atrovent) 500 mcg Q6H PRN HHN Shortness of Breath 01/05/18 23:30 01/10/18 23:29 Lorazepam (Ativan) 1 mg Q6H PRN ORAL For Anxiety 01/08/18 12:30 01/15/18 12:29 01/08/18 13:13 Losartan Potassium (Cozaar) 50 mg DAILY ORAL 01/06/18 09:00 02/05/18 08:59 01/08/18 09:12 Mirtazapine (Remeron) 15 mg BEDTIME ORAL 01/06/18 23:00 02/05/18 22:59 01/07/18 20:49 Ondansetron HCl (Zofran) 4 mg Q6H PRN IVP Nausea & Vomiting 01/05/18 23:30 02/04/18 23:29 Pantoprazole (Protonix) 40 mg ACBREAKFAST ORAL 01/06/18 06:30 02/05/18 06:29 01/08/18 06:16 Potassium Chloride (K-Dur) 20 meq BID ORAL 01/06/18 09:00 02/05/18 08:59 01/08/18 09:11 Sitagliptin Phosphate (Januvia) 100 mg DAILY ORAL 01/06/18 09:00 02/05/18 08:59 01/08/18 09:11 Allergies: Coded Allergies: No Known Allergies (Unverified , 01/05/18) ROS Limited/Unobtainable: No Constitutional: Reports: no symptoms HEENT: Reports: no symptoms Cardiovascular: Reports: no symptoms Respiratory: Reports: no symptoms Gastrointestinal/Abdominal: Reports: no symptoms Genitourinary: Reports: no symptoms Neurologic/Psychiatric: Reports: no symptoms Subjective 72 YO F admitted with hypotension. Cover for Int [place] Alves Objective Last Vital Signs Date Time Temp Pulse Resp B/P (MAP) Pulse Ox O2 Delivery O2 Flow Rate FiO2 01/08/18 12:00 98.1 72 20 124/70 98 Room Air 98.1 01/08/18 09:54 21 General Appearance: WD/WN, no apparent distress, alert EENT: PERRL/EOMI, normal ENT inspection Neck: non-tender, normal alignment, supple, normal inspection Cardiovascular: normal peripheral pulses, normal rate, regular rhythm, no gallop/murmur, no JVD Respiratory/Chest: chest wall non-tender, lungs clear, normal breath sounds, no respiratory distress, no accessory muscle use Abdomen: normal bowel sounds, non tender, soft, no organomegaly, no mass Extremities: normal range of motion, non-tender Neurologic: food server II-XII grossly normal, no motor/sensory deficits Laboratory Tests Test 01/08/18 06:40 White Blood Count 10.1 K/UL (4.8-10.8) Red Blood Count 4.16 M/UL (4.20-5.40) L Hemoglobin 10.8 G/DL (12.0-16.0) L Hematocrit 34.2 % (37.0-47.0) L Mean Corpuscular Volume 82 FL (80-99) Mean Corpuscular Hemoglobin 26.0 PG (27.0-31.0) L Mean Corpuscular Hemoglobin Concent 31.6 G/DL (32.0-36.0) L Red Cell Distribution Width 14.4 % (11.6-14.8) Platelet Count 290 K/UL (150-450) Mean Platelet Volume 7.8 FL (6.5-10.1) Neutrophils (%) (Auto) 61.5 % (45.0-75.0) Lymphocytes (%) (Auto) 23.3 % (20.0-45.0) Monocytes (%) (Auto) 12.7 % (1.0-10.0) H Eosinophils (%) (Auto) 0.7 % (0.0-3.0) Basophils (%) (Auto) 1.9 % (0.0-2.0) Sodium Level 140 MMOL/L (136-145) Potassium Level 4.2 MMOL/L (3.5-5.1) Chloride Level 105 MMOL/L (98-107) Carbon Dioxide Level 27 MMOL/L (21-32) Anion Gap 8 mmol/L (5-15) Blood Urea Nitrogen 26 mg/dL (7-18) H Creatinine 1.4 MG/DL (0.55-1.30) H Estimat Glomerular Filtration Rate 45.1 mL/min (>60) Glucose Level 144 MG/DL (74-106) H Calcium Level 8.9 MG/DL (8.5-10.1) Total Bilirubin 0.5 MG/DL (0.2-1.0) Aspartate Amino Transf (AST/SGOT) 99 U/L (15-37) H Alanine Aminotransferase (ALT/SGPT) 77 U/L (12-78) Alkaline Phosphatase 227 U/L (46-116) H Total Protein 8.5 G/DL (6.4-8.2) H Albumin 2.4 G/DL (3.4-5.0) L Globulin 6.1 g/dL Albumin/Globulin Ratio 0.4 (1.0-2.7) L Microbiology Date/Time Source Procedure Growth Status 01/05/18 15:53 Blood Blood Culture - Preliminary NO GROWTH AFTER 48 HOURS Resulted 01/05/18 15:46 Blood Blood Culture - Preliminary NO GROWTH AFTER 48 HOURS Resulted 01/05/18 15:38 Urine,Clean Catch Urine Culture - Final Escherichia Coli Complete Intake and Output 01/07/18 01/08/18 19:00 07:00 Intake Total 1100 ml Balance 1100 ml Intake Oral 1100 ml # Voids 2 2 # Bowel Movements 1 1 Assessment/Plan Problem List: (1) UTI (urinary tract infection) Assessment & Plan: E. Coli. See ID note (2) Paroxysmal atrial fibrillation (3) Sick sinus syndrome Assessment & Plan: See cardiology note. S/P dual chamber pacemaker (4) HIV (human immunodeficiency virus infection) Assessment & Plan: Continue HAART-see ID note (5) Wasting syndrome (6) Renal failure (7) Abnormal liver enzymes (8) Anemia (9) Dementia (10) Hepatitis C (11) Positive RPR test Assessment & Plan: S/P IM penicillin-see ID note. (12) Generalized weakness (13) Hypotension Status: not improved NIDIA ROMERO Jan 08, 2018 15:37
[2018-01-08 16:00] VITALS: BP 138/71
--- NOTE | 2018-01-08 17:13 | Diagnostic Imaging Report ---
Indication: Abnormal renal function Technique: Multi planar grayscale and color Doppler imaging of the kidneys and bladder. Comparison: Correlation made to abdominal sonogram 01/01/2018 Findings: The right kidney measures 10.5 cm in length. It demonstrates normal parenchymal echogenicity and thickness. There are simple renal cysts on the right. There is no hydronephrosis or sonographically appreciable renal stone. Left kidney measures 10.1 cm in length. Parenchymal echogenicity appears within normal limits. There may be mild fullness of the collecting system. This is persistent on postvoid images, although there is a significant post void residual bladder volume. There is questionable echogenic material versus artifact within the bladder. Bilateral ureteral jets are seen. IMPRESSION: Question echogenic material in the bladder versus artifact. Correlate with urinalysis to exclude cystitis. Abnormal post void residual bladder volume of 188 mL. Possible mild fullness of the left renal collecting system versus extrarenal pelvis. No sonographically appreciable renal stones. Clinical correlation recommended. Consider noncontrast CT of the abdomen and pelvis for further evaluation, especially if there are symptoms on the left (left flank pain).
[2018-01-08 20:00] VITALS: BP 145/72
[2018-01-08] MEDS: Atorvastatin 20mg tab ORAL SCH (22:02)
[2018-01-08] MEDS: Levemir Flexpen SUBQ SCH (22:03)
--- NOTE | 2018-01-08 22:27 | Cardiology Progress Note ---
Assessment/Plan Assessment/Plan 1. Hypotension, resolved with hydration, possibly intravascular volume depletion. 2. History of paroxysmal atrial fibrillation, currently in sinus rhythm, on apixaban. 3. Possible sick sinus syndrome, status post dual-chamber pacemaker implantation. 4. Cardiomyopathy with LVEF ~40%, continue losartan, increase coreg 6.25mg po bid. 5. Severe mitral regurgitation. Subjective Subjective Sinus rhythm at 73. Objective Last 24 Hour Vital Signs Date Time Temp Pulse Resp B/P (MAP) Pulse Ox O2 Delivery O2 Flow Rate FiO2 01/08/18 16:00 97.7 91 20 138/71 94 Room Air 97.7 01/08/18 16:00 73 01/08/18 12:00 98.1 72 20 124/70 98 Room Air 98.1 01/08/18 09:54 81 18 Room Air 21 01/08/18 09:12 157/78 01/08/18 08:00 98.2 67 19 157/78 100 Room Air 98.2 01/08/18 04:00 98.1 77 20 128/87 100 Room Air 98.1 01/08/18 00:00 97.7 62 20 143/72 97 Room Air 21 97.7 Intake and Output 01/07/18 01/08/18 19:00 07:00 Intake Total 1100 ml Balance 1100 ml Intake Oral 1100 ml # Voids 2 2 # Bowel Movements 1 1 2D Echo: EF 40%, Global LV HK, Mild LVH, JOSÉ LUIS, Sev MR/Mod AR, RVSP 53 mmHg Laboratory Tests Test 01/08/18 06:40 White Blood Count 10.1 K/UL (4.8-10.8) Red Blood Count 4.16 M/UL (4.20-5.40) L Hemoglobin 10.8 G/DL (12.0-16.0) L Hematocrit 34.2 % (37.0-47.0) L Mean Corpuscular Volume 82 FL (80-99) Mean Corpuscular Hemoglobin 26.0 PG (27.0-31.0) L Mean Corpuscular Hemoglobin Concent 31.6 G/DL (32.0-36.0) L Red Cell Distribution Width 14.4 % (11.6-14.8) Platelet Count 290 K/UL (150-450) Mean Platelet Volume 7.8 FL (6.5-10.1) Neutrophils (%) (Auto) 61.5 % (45.0-75.0) Lymphocytes (%) (Auto) 23.3 % (20.0-45.0) Monocytes (%) (Auto) 12.7 % (1.0-10.0) H Eosinophils (%) (Auto) 0.7 % (0.0-3.0) Basophils (%) (Auto) 1.9 % (0.0-2.0) Sodium Level 140 MMOL/L (136-145) Potassium Level 4.2 MMOL/L (3.5-5.1) Chloride Level 105 MMOL/L (98-107) Carbon Dioxide Level 27 MMOL/L (21-32) Anion Gap 8 mmol/L (5-15) Blood Urea Nitrogen 26 mg/dL (7-18) H Creatinine 1.4 MG/DL (0.55-1.30) H Estimat Glomerular Filtration Rate 45.1 mL/min (>60) Glucose Level 144 MG/DL (74-106) H Calcium Level 8.9 MG/DL (8.5-10.1) Total Bilirubin 0.5 MG/DL (0.2-1.0) Aspartate Amino Transf (AST/SGOT) 99 U/L (15-37) H Alanine Aminotransferase (ALT/SGPT) 77 U/L (12-78) Alkaline Phosphatase 227 U/L (46-116) H Total Protein 8.5 G/DL (6.4-8.2) H Albumin 2.4 G/DL (3.4-5.0) L Globulin 6.1 g/dL Albumin/Globulin Ratio 0.4 (1.0-2.7) L Objective HEENT: Atraumatic and normocephalic. ENT, pupils are equal, round, and reactive to light and accommodation. Extraocular muscles intact. NECK: JVP is less than 5 cm. No carotid bruit. Carotid upstrokes 2+ bilaterally. CARDIOVASCULAR: Normal S1 and S2. Regular rate and rhythm. No murmurs, gallops, or rubs. PMI is at fourth intercostal space in the midclavicular line. LUNGS: Clear to auscultation bilaterally. ABDOMEN: Soft, nontender, and nondistended. No hepatosplenomegaly. Positive bowel sounds. EXTREMITIES: No evidence of edema, clubbing, or cyanosis. SOFIE RDZ Jan 08, 2018 22:27
[2018-01-09] VITALS: BP 121/62
[2018-01-09 04:00] VITALS: BP 137/75
[2018-01-09] MEDS: NovoLOG Insulin Flexpen SUBQ SCH ×3 (06:30→17:08)
[2018-01-09 08:00] VITALS: BP 130/64
[2018-01-09] MEDS: Losartan 50mg tab ORAL SCH (08:10)
[2018-01-09] MEDS: Docusate 100mg cap ORAL SCH ×2 (08:10→17:04)
[2018-01-09] MEDS: Dolutegravir Sodium 50mg tab ORAL SCH (08:10)
[2018-01-09] MEDS: LORazepam 1mg tab ORAL PRN (08:12)
[2018-01-09] MEDS: Eliquis 2.5mg tablet ORAL SCH ×2 (08:12→17:05)
[2018-01-09 10:07] LABS: BASOPHILS % (AUTO) 1.1 % (0.0-2.0); EOSINOPHILS % (AUTO) 0.7 % (0.0-3.0); HEMATOCRIT 33.9 % (37.0-47.0); HEMOGLOBIN 10.7 G/DL (12.0-16.0); LYMPHOCYTES % (AUTO) 25.7 % (20.0-45.0); MEAN CORPUSCULAR VOLUME 83 FL (80-99); NEUTROPHILS % (AUTO) 61.6 % (45.0-75.0); PLATELET COUNT 293 K/UL (150-450); RED CELL DISTRIBUTION WIDTH 14.6 % (11.6-14.8); WHITE BLOOD COUNT 9.1 K/UL (4.8-10.8)
[2018-01-09 10:58] LABS: ANION GAP 11 mmol/L (5-15); BLOOD UREA NITROGEN 24 mg/dL (7-18); CALCIUM 8.5 MG/DL (8.5-10.1); CARBON DIOXIDE 24 MMOL/L (21-32); CHLORIDE 106 MMOL/L (98-107); CREATININE 1.2 MG/DL (0.55-1.30); POTASSIUM 4.1 MMOL/L (3.5-5.1); SODIUM 141 MMOL/L (136-145)
[2018-01-09 12:00] VITALS: BP 141/76
[2018-01-09 16:00] VITALS: BP 128/70
--- NOTE | 2018-01-09 16:09 | Internal Med Progress Note ---
Subjective Date of Service: Jan 09, 2018 Physician Name Craven,Nidia Attending Physician Tarik Alves MD Current Medications Medications (Trade) Dose Ordered Sig/Nader Route PRN Reason Start Time Stop Time Status Last Admin Dose Admin Acetaminophen (Tylenol) 650 mg Q6H PRN ORAL Mild Pain/Temp > 100.5 01/05/18 23:30 02/04/18 23:29 Acetaminophen/ Hydrocodone Bitart ([place] 5/325) 1 tab Q6H PRN ORAL Severe Pain (Pain Scale 7-10) 01/05/18 23:30 01/12/18 23:29 01/06/18 02:18 Albuterol Sulfate (Proventil) 2.5 mg Q4H PRN HHN Shortness of Breath 01/06/18 23:30 01/11/18 23:29 Apixaban (Eliquis) 2.5 mg BID ORAL 01/06/18 09:00 02/05/18 08:59 01/09/18 08:12 Atorvastatin Calcium (Lipitor) 40 mg BEDTIME ORAL 01/06/18 21:00 02/05/18 20:59 01/08/18 22:02 Carvedilol (Coreg) 3.125 mg EVERY 12 HOURS ORAL 01/08/18 22:30 02/07/18 22:29 01/09/18 08:12 Docusate Sodium (Colace) 100 mg TWICE A DAY ORAL 01/06/18 09:00 02/05/18 08:59 01/09/18 08:10 Dolutegravir Sodium (Tivicay) 50 mg DAILY ORAL 01/06/18 09:00 02/05/18 08:59 01/09/18 08:10 Emtricitabine/ Tenofovir (Truvada 200/ 300mg) 1 tab DAILY ORAL 01/06/18 16:30 02/05/18 16:29 01/09/18 08:11 Gabapentin (Neurontin) 300 mg BID ORAL 01/06/18 09:00 02/05/18 08:59 01/09/18 08:11 Insulin Aspart (NovoLOG) BEFORE MEALS AND HS SUBQ 01/06/18 06:30 02/05/18 06:29 01/09/18 11:06 Insulin Detemir (Levemir) 20 units BEDTIME SUBQ 01/06/18 21:00 02/05/18 20:59 01/08/18 22:03 Ipratropium [place] (Atrovent) 500 mcg Q6H PRN HHN Shortness of Breath 01/05/18 23:30 01/10/18 23:29 Lorazepam (Ativan) 1 mg Q6H PRN ORAL For Anxiety 01/08/18 12:30 01/15/18 12:29 01/09/18 08:12 Losartan Potassium (Cozaar) 50 mg DAILY ORAL 01/06/18 09:00 02/05/18 08:59 01/09/18 08:10 Mirtazapine (Remeron) 15 mg BEDTIME ORAL 01/06/18 23:00 02/05/18 22:59 01/08/18 22:02 Ondansetron HCl (Zofran) 4 mg Q6H PRN IVP Nausea & Vomiting 01/05/18 23:30 02/04/18 23:29 Pantoprazole (Protonix) 40 mg ACBREAKFAST ORAL 01/06/18 06:30 02/05/18 06:29 01/08/18 06:16 Potassium Chloride (K-Dur) 20 meq BID ORAL 01/06/18 09:00 02/05/18 08:59 01/09/18 08:11 Sitagliptin Phosphate (Januvia) 100 mg DAILY ORAL 01/06/18 09:00 02/05/18 08:59 01/09/18 08:10 Allergies: Coded Allergies: No Known Allergies (Unverified , 01/05/18) ROS Limited/Unobtainable: No Constitutional: Reports: no symptoms HEENT: Reports: no symptoms Cardiovascular: Reports: no symptoms Respiratory: Reports: no symptoms Gastrointestinal/Abdominal: Reports: no symptoms Genitourinary: Reports: no symptoms Neurologic/Psychiatric: Reports: no symptoms Subjective 72 YO F admitted with hypotension. Cover for Int Ru-Dr Alves Objective Last Vital Signs Date Time Temp Pulse Resp B/P (MAP) Pulse Ox O2 Delivery O2 Flow Rate FiO2 01/09/18 12:00 97.6 69 19 141/76 96 Room Air 97.6 01/09/18 08:14 21 Laboratory Tests Test 01/09/18 09:15 White Blood Count 9.1 K/UL (4.8-10.8) Red Blood Count 4.10 M/UL (4.20-5.40) L Hemoglobin 10.7 G/DL (12.0-16.0) L Hematocrit 33.9 % (37.0-47.0) L Mean Corpuscular Volume 83 FL (80-99) Mean Corpuscular Hemoglobin 26.1 PG (27.0-31.0) L Mean Corpuscular Hemoglobin Concent 31.5 G/DL (32.0-36.0) L Red Cell Distribution Width 14.6 % (11.6-14.8) Platelet Count 293 K/UL (150-450) Mean Platelet Volume 8.5 FL (6.5-10.1) Neutrophils (%) (Auto) 61.6 % (45.0-75.0) Lymphocytes (%) (Auto) 25.7 % (20.0-45.0) Monocytes (%) (Auto) 11.0 % (1.0-10.0) H Eosinophils (%) (Auto) 0.7 % (0.0-3.0) Basophils (%) (Auto) 1.1 % (0.0-2.0) Sodium Level 141 MMOL/L (136-145) Potassium Level 4.1 MMOL/L (3.5-5.1) Chloride Level 106 MMOL/L (98-107) Carbon Dioxide Level 24 MMOL/L (21-32) Anion Gap 11 mmol/L (5-15) Blood Urea Nitrogen 24 mg/dL (7-18) H Creatinine 1.2 MG/DL (0.55-1.30) Estimat Glomerular Filtration Rate 53.8 mL/min (>60) Glucose Level 198 MG/DL (74-106) H Calcium Level 8.5 MG/DL (8.5-10.1) Intake and Output 01/08/18 01/09/18 19:00 07:00 Intake Total 400 ml 300 ml Balance 400 ml 300 ml Intake Oral 300 ml Other 400 ml # Voids 3 # Bowel Movements 2 Objective General Appearance: WD/WN, no apparent distress, alert EENT: PERRL/EOMI, normal ENT inspection Neck: non-tender, normal alignment, supple, normal inspection Cardiovascular: normal peripheral pulses, normal rate, regular rhythm, no gallop/murmur, no JVD Respiratory/Chest: chest wall non-tender, lungs clear, normal breath sounds, no respiratory distress, no accessory muscle use Abdomen: normal bowel sounds, non tender, soft, no organomegaly, no mass Extremities: normal range of motion, non-tender Neurologic: faith doctor II-XII grossly normal, no motor/sensory deficits Assessment/Plan Problem List: (1) UTI (urinary tract infection) Assessment & Plan: E. Coli. See ID note (2) Paroxysmal atrial fibrillation (3) Sick sinus syndrome Assessment & Plan: See cardiology note. S/P dual chamber pacemaker (4) HIV (human immunodeficiency virus infection) Assessment & Plan: Continue HAART-see ID note (5) Wasting syndrome (6) Renal failure (7) Abnormal liver enzymes (8) Anemia (9) Dementia (10) Hepatitis C (11) Positive RPR test Assessment & Plan: S/P IM penicillin-see ID note. (12) Generalized weakness (13) Hypotension Assessment & Plan: Resolving. see cardiology note. Status: progressing HEATHERNIDIA Jan 09, 2018 16:09
--- NOTE | 2018-01-09 17:00 | Infectious Diseases Prog Note ---
Assessment/Plan Assessment/Plan A: Asymptomatic bacteriuria -u/a neg, ucx >100K E.coli ( R Cipro/levo, bactrim, otherwise S) -Bcx NTD Positive RPR- ?prior treated infections vs new infection (low titers) -RPR 1:1 Afebrile, no leukocytosis -CXR: no acute disease Elevated LFts -abd us: Prior cholecystectomy. Negative for dilated ducts. Borderline hepatomegaly. 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 Transient hypotension Afib DM HTN Malnutrition CKD HTN Dementia gastritis MDD Plan: SP one time dose of PNC 2.4 millions unit given positive RPR -can follow with hiv provider and compare with prior titers if a latent syphilis treatment is needed cont HAART -Continue to monitor off abx unless febrile, leukocytosis -f/u cx -Monitor CBC/BMP, temperatures Subjective Allergies: Coded Allergies: No Known Allergies (Unverified , 01/05/18) Subjective Afebrile Objective Vital Signs Last 24 Hour Vital Signs Date Time Temp Pulse Resp B/P (MAP) Pulse Ox O2 Delivery O2 Flow Rate FiO2 01/09/18 16:00 97.1 102 22 128/70 99 Room Air 97.1 01/09/18 12:00 97.6 69 19 141/76 96 Room Air 97.6 01/09/18 12:00 68 01/09/18 08:14 68 20 Room Air 21 01/09/18 08:12 130 64/66 01/09/18 08:10 130/64 01/09/18 08:00 68 01/09/18 08:00 97.2 68 19 130/64 96 Room Air 97.2 01/09/18 04:00 67 01/09/18 04:00 98.1 66 18 137/75 100 Room Air 98.1 01/09/18 00:00 68 01/09/18 00:00 97.9 73 18 121/62 94 Room Air 97.9 01/08/18 23:34 74 145/72 01/08/18 20:00 97.2 74 18 145/72 100 Room Air 97.2 01/08/18 20:00 78 Height (Feet): 5 Height (Inches): 2.00 Weight (Pounds): 132 HEENT: anicteric Respiratory/Chest: normal breath sounds Cardiovascular: regular rhythm Abdomen: no organomegaly Laboratory Tests Test 01/09/18 09:15 White Blood Count 9.1 K/UL (4.8-10.8) Red Blood Count 4.10 M/UL (4.20-5.40) L Hemoglobin 10.7 G/DL (12.0-16.0) L Hematocrit 33.9 % (37.0-47.0) L Mean Corpuscular Volume 83 FL (80-99) Mean Corpuscular Hemoglobin 26.1 PG (27.0-31.0) L Mean Corpuscular Hemoglobin Concent 31.5 G/DL (32.0-36.0) L Red Cell Distribution Width 14.6 % (11.6-14.8) Platelet Count 293 K/UL (150-450) Mean Platelet Volume 8.5 FL (6.5-10.1) Neutrophils (%) (Auto) 61.6 % (45.0-75.0) Lymphocytes (%) (Auto) 25.7 % (20.0-45.0) Monocytes (%) (Auto) 11.0 % (1.0-10.0) H Eosinophils (%) (Auto) 0.7 % (0.0-3.0) Basophils (%) (Auto) 1.1 % (0.0-2.0) Sodium Level 141 MMOL/L (136-145) Potassium Level 4.1 MMOL/L (3.5-5.1) Chloride Level 106 MMOL/L (98-107) Carbon Dioxide Level 24 MMOL/L (21-32) Anion Gap 11 mmol/L (5-15) Blood Urea Nitrogen 24 mg/dL (7-18) H Creatinine 1.2 MG/DL (0.55-1.30) Estimat Glomerular Filtration Rate 53.8 mL/min (>60) Glucose Level 198 MG/DL (74-106) H Calcium Level 8.5 MG/DL (8.5-10.1) Current Medications Medications (Trade) Dose Ordered Sig/Nader Route PRN Reason Start Time Stop Time Status Last Admin Dose Admin Acetaminophen (Tylenol) 650 mg Q6H PRN ORAL Mild Pain/Temp > 100.5 3/27/18 23:30 02/04/18 23:29 Acetaminophen/ Hydrocodone Bitart ([place] 5/325) 1 tab Q6H PRN ORAL Severe Pain (Pain Scale 7-10) 01/05/18 23:30 01/12/18 23:29 01/06/18 02:18 Albuterol Sulfate (Proventil) 2.5 mg Q4H PRN HHN Shortness of Breath 01/06/18 23:30 01/11/18 23:29 Apixaban (Eliquis) 2.5 mg BID ORAL 01/06/18 09:00 02/05/18 08:59 01/09/18 08:12 Atorvastatin Calcium (Lipitor) 40 mg BEDTIME ORAL 01/06/18 21:00 02/05/18 20:59 01/08/18 22:02 Carvedilol (Coreg) 3.125 mg EVERY 12 HOURS ORAL 01/08/18 22:30 02/07/18 22:29 01/09/18 08:12 Docusate Sodium (Colace) 100 mg TWICE A DAY ORAL 01/06/18 09:00 02/05/18 08:59 01/09/18 08:10 Dolutegravir Sodium (Tivicay) 50 mg DAILY ORAL 01/06/18 09:00 02/05/18 08:59 01/09/18 08:10 Emtricitabine/ Tenofovir (Truvada 200/ 300mg) 1 tab DAILY ORAL 01/06/18 16:30 02/05/18 16:29 01/09/18 08:11 Gabapentin (Neurontin) 300 mg BID ORAL 01/06/18 09:00 02/05/18 08:59 01/09/18 08:11 Insulin Aspart (NovoLOG) BEFORE MEALS AND HS SUBQ 01/06/18 06:30 02/05/18 06:29 01/09/18 11:06 Insulin Detemir (Levemir) 20 units BEDTIME SUBQ 01/06/18 21:00 02/05/18 20:59 01/08/18 22:03 Ipratropium [place] (Atrovent) 500 mcg Q6H PRN HHN Shortness of Breath 01/05/18 23:30 01/10/18 23:29 Lorazepam (Ativan) 1 mg Q6H PRN ORAL For Anxiety 01/08/18 12:30 01/15/18 12:29 01/09/18 08:12 Losartan Potassium (Cozaar) 50 mg DAILY ORAL 01/06/18 09:00 02/05/18 08:59 01/09/18 08:10 Mirtazapine (Remeron) 15 mg BEDTIME ORAL 01/06/18 23:00 02/05/18 22:59 01/08/18 22:02 Ondansetron HCl (Zofran) 4 mg Q6H PRN IVP Nausea & Vomiting 01/05/18 23:30 02/04/18 23:29 Pantoprazole (Protonix) 40 mg ACBREAKFAST ORAL 01/06/18 06:30 02/05/18 06:29 01/08/18 06:16 Potassium Chloride (K-Dur) 20 meq BID ORAL 01/06/18 09:00 02/05/18 08:59 01/09/18 08:11 Sitagliptin Phosphate (Januvia) 100 mg DAILY ORAL 01/06/18 09:00 02/05/18 08:59 01/09/18 08:10 Spike Diaz MD Jan 09, 2018 17:00
--- NOTE | 2018-01-09 22:03 | Cardiology Progress Note ---
Assessment/Plan Assessment/Plan 1. Hypotension, resolved with hydration, possibly intravascular volume depletion. 2. History of paroxysmal atrial fibrillation, currently in sinus rhythm, on apixaban. 3. Possible sick sinus syndrome, status post dual-chamber pacemaker implantation. 4. Cardiomyopathy with LVEF ~40%, continue losartan, continue coreg. 5. Severe mitral regurgitation. Subjective Subjective Sinus tachycardia at 102. Objective Last 24 Hour Vital Signs Date Time Temp Pulse Resp B/P (MAP) Pulse Ox O2 Delivery O2 Flow Rate FiO2 01/09/18 16:00 97.1 102 22 128/70 99 Room Air 97.1 01/09/18 12:00 97.6 69 19 141/76 96 Room Air 97.6 01/09/18 12:00 68 01/09/18 08:14 68 20 Room Air 21 01/09/18 08:12 130 64/66 01/09/18 08:10 130/64 01/09/18 08:00 68 01/09/18 08:00 97.2 68 19 130/64 96 Room Air 97.2 01/09/18 04:00 67 01/09/18 04:00 98.1 66 18 137/75 100 Room Air 98.1 01/09/18 00:00 68 01/09/18 00:00 97.9 73 18 121/62 94 Room Air 97.9 01/08/18 23:34 74 145/72 Intake and Output 01/08/18 01/09/18 19:00 07:00 Intake Total 400 ml 300 ml Balance 400 ml 300 ml Intake Oral 300 ml Other 400 ml # Voids 3 # Bowel Movements 2 2D Echo: EF 40%, Global LV HK, Mild LVH, JOSÉ LUIS, Sev MR/Mod AR, RVSP 53 mmHg Laboratory Tests Test 01/09/18 09:15 White Blood Count 9.1 K/UL (4.8-10.8) Red Blood Count 4.10 M/UL (4.20-5.40) L Hemoglobin 10.7 G/DL (12.0-16.0) L Hematocrit 33.9 % (37.0-47.0) L Mean Corpuscular Volume 83 FL (80-99) Mean Corpuscular Hemoglobin 26.1 PG (27.0-31.0) L Mean Corpuscular Hemoglobin Concent 31.5 G/DL (32.0-36.0) L Red Cell Distribution Width 14.6 % (11.6-14.8) Platelet Count 293 K/UL (150-450) Mean Platelet Volume 8.5 FL (6.5-10.1) Neutrophils (%) (Auto) 61.6 % (45.0-75.0) Lymphocytes (%) (Auto) 25.7 % (20.0-45.0) Monocytes (%) (Auto) 11.0 % (1.0-10.0) H Eosinophils (%) (Auto) 0.7 % (0.0-3.0) Basophils (%) (Auto) 1.1 % (0.0-2.0) Sodium Level 141 MMOL/L (136-145) Potassium Level 4.1 MMOL/L (3.5-5.1) Chloride Level 106 MMOL/L (98-107) Carbon Dioxide Level 24 MMOL/L (21-32) Anion Gap 11 mmol/L (5-15) Blood Urea Nitrogen 24 mg/dL (7-18) H Creatinine 1.2 MG/DL (0.55-1.30) Estimat Glomerular Filtration Rate 53.8 mL/min (>60) Glucose Level 198 MG/DL (74-106) H Calcium Level 8.5 MG/DL (8.5-10.1) Objective HEENT: Atraumatic and normocephalic. ENT, pupils are equal, round, and reactive to light and accommodation. Extraocular muscles intact. NECK: JVP is less than 5 cm. No carotid bruit. Carotid upstrokes 2+ bilaterally. CARDIOVASCULAR: Normal S1 and S2. Tachycardic. Regular rate and rhythm. No murmurs, gallops, or rubs. PMI is at fourth intercostal space in the midclavicular line. LUNGS: Clear to auscultation bilaterally. ABDOMEN: Soft, nontender, and nondistended. No hepatosplenomegaly. Positive bowel sounds. EXTREMITIES: No evidence of edema, clubbing, or cyanosis. SOFIE RDZ Jan 09, 2018 22:03
--- NOTE | 2018-01-11 08:10 | Discharge Summary ---
Discharge Summary Discharge Summary Discharge Summary DATE OF ADMISSION: 01/05/2018 DATE OF DISCHARGE: 01/09/2018 REASON FOR ADMISSION: 72 years old female with past medical history of hypertension, diabetes mellitus type 2, HIV, hepatitis C with treatment failure, depression, gastritis presented to emergency department with generalized weakness, low blood pressure and poor oral intake. Vital signs revealed low blood pressure. Urinalysis with many bacteria, no pyuria. No leukocytosis. Lactic acid within normal limits. Troponin negative. EKG with normal sinus rhythm. BUN 27 and creatinine 1.4, for evidence of anemia with hemoglobin 11.5 and hematocrit 36.6. Elevated LFT. Patient was admitted with diagnosis of wasting syndrome, HIV status , possible UTI, hypotension, diabetes, anemia, elevated LFT, renal failure. HOSPITAL COURSE: Patient admitted to telemetry floor. Cardiology, infectious disease specialist and psychiatry consults were requested.. According to enterprise infrastructure architect hypotension likely was due to intravascular volume depletion secondary to dehydration. Patient was started on intravenous hydration. Echocardiogram revealed ejection fraction of 40-45% with mild global left ventricular hypokinesis. Pacemaker wires were present in the right side chambers. Severe mitral regurgitation. Right ventricular systolic pressure of 53 consistent with moderate pulmonary hypertension. Antihypertensive medications initially were on hold. Patient had history of paroxysmal atrial fibrillation and was continued on Eliquis. Blood pressure responded to intravenous fluid. Patient started on medical management for cardiomyopathy with beta cathleen and ARB. Continue at home losartan and Coreg. No evidence of decompensation. Infectious disease doctor closely followed. Blood cultures were negative. Urinalysis revealed many bacteria, but no pyuria. Urine culture revealed Escherichia coli. According to ID patient had asymptomatic bacteriuria and no urinary complaints. ID specialist recommended to keep patient off antibiotic. Patient was continued on HAART therapy. Laboratory workup showed good control of HIV, CD4 count -944. RPR was positive with titer 1:1, one dose of penicillin was given while in the hospital. Infectious disease doctor recommended continue to follow-up with HIV provider and compare to prior titers if a latent syphilis treatment needed. Hepatitis panel revealed evidence of hepatitis C. Patient had a treatment failure after treatment of 6 months. Abdominal ultrasound revealed no evidence of gallstones or dilated ducts. LFT were closely monitored, trending down. CT of the head revealed chronic age-related changes but was negative for acute intracranial bleeding or mass effect. Hemoglobin and hematocrit were closely monitored, remained at baseline. Blood sugar was managed with oral anti-glycemic and sliding scale of insulin as needed. Blood sugar was stable, however hemoglobin A1c was not at goal, -8.5. Patient needs optimization of anti-glycemic regimen as outpatient. Renal parameters and electrolytes were closely monitored. Electrolytes corrected as needed. Creatinine down to 1.2 prior to discharge. Renal failure upon admission was likely due to dehydration and resolved with the intravenous hydration. Renal ultrasound revealed normal bilateral echogenicity. Dietary recommendations implemented to improve nutritional status. Psychiatrist closely followed patient and diagnosed her with major depression disorder and dementia. According to psychiatrist, patient lacks capacity to make informed decisions. Psychiatrist optimized psychiatric medication regimen. Patient was stable for discharge home with home health services to follow. FINAL DIAGNOSES: 1. Wasting syndrome. 2. Hypotension likely due to intravascular volume depletion secondary to dehydration. 8. HIV status , with good control. 4. Elevated LFT. 5. Asymptomatic bacteriuria. 5. Dementia. 6. Anemia. 7. Cardiomyopathy with ejection fraction 40%. 8. Severe mitral regurgitation. 9. History of paroxysmal atrial fibrillation. 10. Possible sick sinus syndrome, status post pacemaker and implantation. 11. Hepatitis C , with treatment failure after 6 months of treatment 12. Diabetes mellitus type 2. 13. Major depressive disorder. 14. Positive RPR. 15. Renal failure, resolved likely due to dehydration 16. Malnutrition. DISCHARGE MEDICATIONS: See Medication Reconciliation list. DISCHARGE INSTRUCTIONS: Patient was discharged home with home health. Follow up with primary care provider in one week. I have been assigned to dictate discharge summary for this account. I was not involved in the patient's management. Shadia Edwards NP ([facility]) Jan 11, 2018 08:10
--- NOTE | 2018-01-11 22:36 | General Progress Note ---
Assessment/Plan Assessment/Plan MDD Dementia failure to thrive -dc seroquel 25 bid -remeron 15mg po qhs -ativan prn -the pt lacks capacity to leave [facility] Subjective Date patient seen: Jan 09, 2018 Allergies: Coded Allergies: No Known Allergies (Unverified , 01/05/18) Subjective the pt is agitated today. She wants to leave [facility]. the pt is confused and irrational. Objective Height (Feet): 5 Height (Inches): 2.00 Weight (Pounds): 132 David Allison M.D. Jan 11, 2018 22:36
== END 2018-01-09 18:00 | disposition home health service (06) | DRG 890 ==
LOC: EDBD 15:28 → EMR 15:40 → 2E 17:56 → EDBEDREQ 18:54 → 2E 23:28
DX: E86.0 Dehydration (principal); B20 Human immunodeficiency virus [HIV] disease; F03.90 Unspecified dementia, unspecified severity, without behavioral disturbance, psychotic disturbance, mood disturbance, and anxiety; N19 Unspecified kidney failure; R64 Cachexia; E46 Unspecified protein-calorie malnutrition; I42.9 Cardiomyopathy, unspecified; E11.22 Type 2 diabetes mellitus with diabetic chronic kidney disease; I95.9 Hypotension, unspecified; I27.20 Pulmonary hypertension, unspecified; I48.0 Paroxysmal atrial fibrillation; E11.9 Type 2 diabetes mellitus without complications; F32.9 Major depressive disorder, single episode, unspecified; K21.9 Gastro-esophageal reflux disease without esophagitis; E78.5 Hyperlipidemia, unspecified; R53.1 Weakness; D64.9 Anemia, unspecified; I34.0 Nonrheumatic mitral (valve) insufficiency; B19.20 Unspecified viral hepatitis C without hepatic coma; I12.9 Hypertensive chronic kidney disease with stage 1 through stage 4 chronic kidney disease, or unspecified chronic kidney disease; N18.9 Chronic kidney disease, unspecified; Z95.0 Presence of cardiac pacemaker; K29.70 Gastritis, unspecified, without bleeding; D89.2 Hypergammaglobulinemia, unspecified; Z79.4 Long term (current) use of insulin; R62.7 Adult failure to thrive
CPT/HCPCS: 36415; 70450; 71045; 76700; 76770; 80048; 80053; 80061; 81003; 82550; 82553; 82962; 83036; 83605; 83735; 84100; 84443; 84484; 85025; 86360; 86592; 86705; 86709; 86803; 86850; 86900; 86901; 87040; 87086; 87181; 87340; 87536; 93005; 93306; 94664; 99285; J1815; J8499; S5561